=== PATIENT | female | born 1950 | race Caucasian/White ===

== ENCOUNTER 2016-05-22 12:05 | Inpatient (IN) | payer BC, MEDICARE ==
[~2016-05-22] VITALS: Ht 170.2 cm; Wt 147.4 kg
[~2016-05-22 12:05] MED LIST: FLUT16SP2 NS; FLUT1DIS IH; MONT4GRA PO; TIOT18CA3 IH
[2016-05-22] MEDS ORDERED: ONDANSETRON HCL/PF 4 MG/2 ML VIAL ONE (12:27)
[2016-05-22] MEDS ORDERED: MORPHINE SULFATE INJ 2 MG/ML DISP.SYRIN ONE ×2 (12:27→15:01)
[2016-05-22] MEDS ORDERED: IV SET PRIMARY 1 EA INFUS.SET MC ONE (12:27)
[2016-05-22] MEDS ORDERED: MORPHINE SULFATE INJ 4 MG/ML DISP.SYRIN ONE ×2 (12:27→15:01)
[2016-05-22] MEDS ORDERED: IV NS 0.9% 1,000 ML ONE (12:28)
[2016-05-22] MEDS ORDERED: MORPHINE SULFATE INJ 2 MG/ML DISP.SYRIN IV ONE ×2 (12:30→15:30)
[2016-05-22] MEDS ORDERED: IV NS 0.9% 1,000 ML BAG IV ONE (12:30)
[2016-05-22] MEDS ORDERED: ONDANSETRON HCL/PF 4 MG/2 ML VIAL IV ONE (12:30)
[2016-05-22] MEDS ORDERED: MONT10TA22 PO (12:50)
[2016-05-22] MEDS ORDERED: ALBU18HF2 IH (12:50)
[2016-05-22] MEDS ORDERED: FLUT1DIS5 IH (12:50)
[2016-05-22] MEDS ORDERED: PRED10TA PO (12:50)
[2016-05-22] MEDS ORDERED: ALBU2.5V13 IH (12:50)
[2016-05-22 13:59] LABS: BASOPHILS % (AUTO) 0.2 % (0.0-2.0); DIFF TOTAL % 100 %; EOSINOPHILS # (AUTO) 0.1 /CMM (0.0-0.7); EOSINOPHILS % (AUTO) 0.4 % (0.0-6.0); HEMATOCRIT 40 % (33-45); HEMOGLOBIN 13.1 g/dL (11.5-14.8); LYMPHOCYTES # (AUTO) 1.5 /CMM (0.8-4.8); LYMPHOCYTES % (AUTO) 8.5 % (20.0-44.0); MEAN CORPUSCULAR HEMOGLOBIN 29 PG (26.0-33.0); MEAN CORPUSCULAR HGB CONC 33 g/dl (31.0-36.0); MEAN CORPUSCULAR VOLUME 88 fL (82-100); MONOCYTES % (AUTO) 5.5 % (2.0-12.0); NEUTROPHILS # (AUTO) 15.1 /CMM (1.8-8.9); NEUTROPHILS % (AUTO) 85.4 % (43.0-81.0); PLATELET COUNT (AUTO) 187 /CMM (150-450); RED BLOOD CELL COUNT(AUTO) 4.58 MIL/uL (4.0-5.2); WHITE BLOOD COUNT (AUTO) 17.7 K/uL (4.3-11.0)
[2016-05-22 14:00] LABS: ANION GAP 11 (5-14); CALCIUM, SERUM 8.1 mg/dL (8.5-10.1); CARBON DIOXIDE 26 mmol/L (21-32); CHLORIDE 106 mmol/L (98-107); CREATININE 0.7 mg/dL (0.6-1.3); GFR 84 mL/min (>60); GLUCOSE 111 mg/dL (74-106); POTASSIUM 4.1 mmol/L (3.5-5.1); SODIUM SERUM 139 mmol/L (136-145); UREA NITROGEN, BLOOD 20 mg/dL (7-18)
[2016-05-22 14:04] LABS: INR 0.94 (0.87-1.13); PROTHROMBIN TIME 9.9 SECS (9.5-12.7)
[2016-05-22 14:09] LABS: TROPONIN I < 0.017 ng/mL (0.00-0.056)
[2016-05-22] MEDS ORDERED: ALBUTEROL FS 2.5 MG/0.5 ML VIAL.NEB IH PRN (17:30)
[2016-05-22] MEDS ORDERED: Z GUARD REMEDY 2 OZ OINT TP PRN (18:00)
[2016-05-22] MEDS ORDERED: HYDROCODONE/APAP 5/325MG 1 EACH TABLET PO PRN (18:00)
[2016-05-22] MEDS ORDERED: ACETAMINOPHEN 325 MG TABLET PO PRN (18:00)
[2016-05-22] MEDS ORDERED: ONDANSETRON HCL/PF 4 MG/2 ML VIAL IVP PRN (18:00)
[2016-05-22] MEDS ORDERED: MAGNESIUM HYDROXIDE 30 ML UDC PO PRN (18:00)
[2016-05-22] MEDS ORDERED: ZOLPIDEM TARTRATE 5 MG TABLET PO PRN (18:00)
[2016-05-22] MEDS ORDERED: MAG HYDROX/AL HYDROX/SIMETH 30 ML UDC PO PRN (18:00)
[2016-05-22] MEDS: MORPHINE SULFATE INJ 2 MG/ML DISP.SYRIN IV PRN ×2 (18:05→22:05)
[2016-05-22] MEDS: IPRATROPIUM NEB FS 0.5 MG/2.5 ML AMPUL.NEB NEB SCH (19:30)
[2016-05-22 20:06] VITALS: BP 121/62
[2016-05-22] MEDS: MONTELUKAST SODIUM (10MG) 10 MG TABLET PO SCH (21:35)
[2016-05-23] MEDS: IPRATROPIUM NEB FS 0.5 MG/2.5 ML AMPUL.NEB NEB SCH ×4 (01:36→19:09)
[2016-05-23] MEDS: PANTOPRAZOLE 40 MG TABLET.DR PO SCH (07:30)
[2016-05-23] MEDS: MORPHINE SULFATE INJ 2 MG/ML DISP.SYRIN IV PRN ×4 (07:34→23:00)
[2016-05-23 07:43] LABS: BASOPHILS % (AUTO) 0.3 % (0.0-2.0); DIFF TOTAL % 100 %; EOSINOPHILS # (AUTO) 0.2 /CMM (0.0-0.7); EOSINOPHILS % (AUTO) 2.7 % (0.0-6.0); HEMATOCRIT 39 % (33-45); HEMOGLOBIN 12.8 g/dL (11.5-14.8); LYMPHOCYTES # (AUTO) 1.2 /CMM (0.8-4.8); LYMPHOCYTES % (AUTO) 14.8 % (20.0-44.0); MEAN CORPUSCULAR HEMOGLOBIN 29 PG (26.0-33.0); MEAN CORPUSCULAR HGB CONC 33 g/dl (31.0-36.0); MEAN CORPUSCULAR VOLUME 88 fL (82-100); MONOCYTES # (AUTO) 0.6 /CMM (0.1-1.30); MONOCYTES % (AUTO) 8.2 % (2.0-12.0); NEUTROPHILS # (AUTO) 5.8 /CMM (1.8-8.9); PLATELET COUNT (AUTO) 143 /CMM (150-450); RED BLOOD CELL COUNT(AUTO) 4.46 MIL/uL (4.0-5.2); WHITE BLOOD COUNT (AUTO) 7.8 K/uL (4.3-11.0)
[2016-05-23 08:00] VITALS: BP 132/62
[2016-05-23 08:11] LABS: CALCIUM, SERUM 8.2 mg/dL (8.5-10.1); CREATININE 0.6 mg/dL (0.6-1.3); PHOSPHORUS 3.6 mg/dL (2.5-4.9); POTASSIUM 4.6 mmol/L (3.5-5.1)
[2016-05-23 08:16] LABS: THYROID STIMULATING HORMONE 1.711 uIU/mL (0.358-3.74); TROPONIN I 0.267 ng/mL (0.00-0.056)
[2016-05-23] MEDS: FLUTICASONE/SALMETEROL DISKUS IH SCH ×2 (08:31→16:45)
[2016-05-23] MEDS: FLUTICASONE PROPIONATE 16 GM BOTTLE NS SCH (08:31)
[2016-05-23] MEDS ORDERED: TIOTROPIUM BROMIDE 6 CAP/BOX CAP.W.DEV IH SCH (09:00)
[2016-05-23] MEDS ORDERED: FLUTICASONE/SALMETEROL DISKUS IH SCH (09:00)
[2016-05-23] MEDS ORDERED: IV SET PRIMARY PUMP SET 1 EA INFUS.SET MC ONE (09:03)
[2016-05-23] MEDS: IV NS 0.9% 1,000 ML IV PRN ×2 (09:24→19:59)
[2016-05-23] MEDS: HYDROCORTISONE SOD SUCCINATE 100 MG/2 ML VIAL IV SCH ×2 (14:28→20:38)
[2016-05-23 16:00] VITALS: BP 136/71
[2016-05-23 20:00] VITALS: BP 134/78
[2016-05-23] MEDS: MONTELUKAST SODIUM (10MG) 10 MG TABLET PO SCH (22:01)
[2016-05-24] VITALS (8 sets, daily range): BP systolic 120–157; BP diastolic 64–88
[2016-05-24] MEDS: IPRATROPIUM NEB FS 0.5 MG/2.5 ML AMPUL.NEB NEB SCH ×4 (01:31→19:29)
[2016-05-24] MEDS: MORPHINE SULFATE INJ 2 MG/ML DISP.SYRIN IV PRN (02:55)
[2016-05-24] MEDS: IV NS 0.9% 1,000 ML IV PRN (02:55)
[2016-05-24] MEDS ORDERED: MIDAZOLAM HCL 2 MG/2ML VIAL ONE (06:54)
[2016-05-24] MEDS ORDERED: FENTANYL PF 100MCG/2ML AMPUL ONE (06:54)
[2016-05-24] MEDS ORDERED: ROCURONIUM BROMIDE 50 MG/5 ML ONE (06:54)
[2016-05-24] MEDS ORDERED: CLINDAMYCIN 900 MG/6 ML VIAL ONE (07:16)
[2016-05-24 07:26] LABS: BASOPHILS % (AUTO) 0.3 % (0.0-2.0); DIFF TOTAL % 100 %; EOSINOPHILS % (AUTO) 0.2 % (0.0-6.0); HEMATOCRIT 35 % (33-45); HEMOGLOBIN 11.5 g/dL (11.5-14.8); LYMPHOCYTES # (AUTO) 1.2 /CMM (0.8-4.8); LYMPHOCYTES % (AUTO) 10.4 % (20.0-44.0); MEAN CORPUSCULAR HEMOGLOBIN 29 PG (26.0-33.0); MEAN CORPUSCULAR HGB CONC 33 g/dl (31.0-36.0); MEAN CORPUSCULAR VOLUME 89 fL (82-100); MONOCYTES # (AUTO) 0.8 /CMM (0.1-1.30); MONOCYTES % (AUTO) 6.6 % (2.0-12.0); NEUTROPHILS # (AUTO) 9.5 /CMM (1.8-8.9); NEUTROPHILS % (AUTO) 82.5 % (43.0-81.0); PLATELET COUNT (AUTO) 140 /CMM (150-450); WHITE BLOOD COUNT (AUTO) 11.6 K/uL (4.3-11.0)
[2016-05-24 07:46] LABS: ALBUMIN 2.3 g/dL (3.4-5.0); BILIRUBIN,TOTAL 0.7 mg/dL (0.2-1.0); CREATININE 0.6 mg/dL (0.6-1.3); PHOSPHORUS 3.2 mg/dL (2.5-4.9); POTASSIUM 3.9 mmol/L (3.5-5.1); TOTAL PROTEIN, SERUM 5.6 g/dL (6.4-8.2)
[2016-05-24] MEDS ORDERED: HYDROMORPHONE 1 MG/1 ML DISP.SYRIN ONE (08:37)
[2016-05-24] MEDS ORDERED: ONDANSETRON HCL/PF 4 MG/2 ML VIAL IVP PRN (09:30)
[2016-05-24] MEDS ORDERED: SENNOSIDES 8.6 MG TABLET PO PRN (09:30)
[2016-05-24] MEDS ORDERED: ZOLPIDEM TARTRATE 5 MG TABLET PO PRN (09:30)
[2016-05-24] MEDS ORDERED: HYDROMORPHONE 1 MG/1 ML DISP.SYRIN IV PRN (09:30)
[2016-05-24] MEDS ORDERED: ACETAMINOPHEN 325 MG TABLET PO PRN (09:30)
[2016-05-24] MEDS: PANTOPRAZOLE 40 MG TABLET.DR PO SCH (09:30)
[2016-05-24] MEDS ORDERED: BISACODYL SUPP (10 MG) 10 MG/SUPP.RECT SUPP.RECT RC PRN (09:30)
[2016-05-24] MEDS: HYDROCORTISONE SOD SUCCINATE 100 MG/2 ML VIAL IV SCH ×3 (09:31→16:38)
[2016-05-24] MEDS: FLUTICASONE PROPIONATE 16 GM BOTTLE NS SCH (10:28)
[2016-05-24] MEDS: FLUTICASONE/SALMETEROL DISKUS IH SCH ×2 (10:34→16:38)
[2016-05-24] MEDS ORDERED: SECONDARY IV SET 1 EA INFUS.SET MC ONE (12:02)
[2016-05-24] MEDS: CLINDAMYCIN 600 MG in IV D5W 50 ML IV SCH ×2 (12:09→18:14)
[2016-05-24] MEDS: IV LR 1000 ML 1,000 ML IV PRN (14:46)
[2016-05-24] MEDS: MONTELUKAST SODIUM (10MG) 10 MG TABLET PO SCH (22:05)
[2016-05-25] MEDS: CLINDAMYCIN 600 MG in IV D5W 50 ML IV SCH (00:47)
[2016-05-25] MEDS: IPRATROPIUM NEB FS 0.5 MG/2.5 ML AMPUL.NEB NEB SCH ×4 (01:18→19:47)
[2016-05-25] MEDS: HYDROCODONE/APAP 5/325MG 1 EACH TABLET PO PRN ×4 (01:44→22:27)
[2016-05-25 06:37] LABS: BASOPHILS % (AUTO) 0.3 % (0.0-2.0); DIFF TOTAL % 100 %; EOSINOPHILS % (AUTO) 0.2 % (0.0-6.0); HEMATOCRIT 30 % (33-45); HEMOGLOBIN 9.9 g/dL (11.5-14.8); LYMPHOCYTES # (AUTO) 1.1 /CMM (0.8-4.8); LYMPHOCYTES % (AUTO) 7.8 % (20.0-44.0); MEAN CORPUSCULAR HEMOGLOBIN 29 PG (26.0-33.0); MEAN CORPUSCULAR HGB CONC 33 g/dl (31.0-36.0); MEAN CORPUSCULAR VOLUME 88 fL (82-100); MONOCYTES # (AUTO) 0.8 /CMM (0.1-1.30); MONOCYTES % (AUTO) 6.2 % (2.0-12.0); NEUTROPHILS # (AUTO) 11.7 /CMM (1.8-8.9); NEUTROPHILS % (AUTO) 85.5 % (43.0-81.0); PLATELET COUNT (AUTO) 133 /CMM (150-450); RED BLOOD CELL COUNT(AUTO) 3.42 MIL/uL (4.0-5.2); WHITE BLOOD COUNT (AUTO) 13.6 K/uL (4.3-11.0)
[2016-05-25] MEDS: PANTOPRAZOLE 40 MG TABLET.DR PO SCH (07:54)
[2016-05-25 07:56] LABS: ALBUMIN 2.2 g/dL (3.4-5.0); BILIRUBIN,DIRECT 0.1 mg/dL (0.0-0.2); BILIRUBIN,TOTAL 0.6 mg/dL (0.2-1.0); CREATININE 0.7 mg/dL (0.6-1.3); INDIRECT BILIRUBIN 0.5 mg/dL (0.0-1.1); PHOSPHORUS 3.3 mg/dL (2.5-4.9); POTASSIUM 4.2 mmol/L (3.5-5.1); TOTAL PROTEIN, SERUM 5.3 g/dL (6.4-8.2)
[2016-05-25 08:00] VITALS: BP 113/56
[2016-05-25 08:02] LABS: TROPONIN I 0.062 ng/mL (0.00-0.056)
[2016-05-25] MEDS: ALBUTEROL FS 2.5 MG/3 ML VIAL.NEB NEB PRN (08:04)
[2016-05-25] MEDS: HYDROCORTISONE SOD SUCCINATE 100 MG/2 ML VIAL IV SCH ×3 (08:43→17:49)
[2016-05-25] MEDS: FLUTICASONE/SALMETEROL DISKUS IH SCH ×2 (08:44→16:51)
[2016-05-25] MEDS: FLUTICASONE PROPIONATE 16 GM BOTTLE NS SCH (08:44)
[2016-05-25] MEDS: IV LR 1000 ML 1,000 ML IV PRN ×2 (10:04→22:30)
[2016-05-25 16:00] VITALS: BP 99/64
[2016-05-25 20:00] VITALS: BP_SYST 107; BP_SYST 99; BP_DIAS 50; BP_DIAS 58
[2016-05-25 22:00] VITALS: BP 107/55
[2016-05-25] MEDS: MONTELUKAST SODIUM (10MG) 10 MG TABLET PO SCH (22:27)
[2016-05-26] MEDS: IPRATROPIUM NEB FS 0.5 MG/2.5 ML AMPUL.NEB NEB SCH ×4 (01:16→19:54)
[2016-05-26] MEDS: HYDROCODONE/APAP 5/325MG 1 EACH TABLET PO PRN ×3 (05:42→22:02)
[2016-05-26] MEDS: DOCUSATE SODIUM 250 MG CAPSULE PO PRN (06:05)
[2016-05-26 07:58] LABS: BASOPHILS # (AUTO) 0.2 /CMM (0.0-0.2); BASOPHILS % (AUTO) 1.5 % (0.0-2.0); DIFF TOTAL % 100 %; EOSINOPHILS # (AUTO) 0.1 /CMM (0.0-0.7); EOSINOPHILS % (AUTO) 0.6 % (0.0-6.0); HEMATOCRIT 30 % (33-45); HEMOGLOBIN 9.9 g/dL (11.5-14.8); LYMPHOCYTES # (AUTO) 2.3 /CMM (0.8-4.8); LYMPHOCYTES % (AUTO) 17.3 % (20.0-44.0); MEAN CORPUSCULAR HEMOGLOBIN 29 PG (26.0-33.0); MEAN CORPUSCULAR HGB CONC 33 g/dl (31.0-36.0); MEAN CORPUSCULAR VOLUME 87 fL (82-100); MONOCYTES # (AUTO) 1.1 /CMM (0.1-1.30); MONOCYTES % (AUTO) 8.4 % (2.0-12.0); NEUTROPHILS # (AUTO) 9.5 /CMM (1.8-8.9); NEUTROPHILS % (AUTO) 72.2 % (43.0-81.0); PLATELET COUNT (AUTO) 145 /CMM (150-450); RED BLOOD CELL COUNT(AUTO) 3.47 MIL/uL (4.0-5.2); WHITE BLOOD COUNT (AUTO) 13.2 K/uL (4.3-11.0)
[2016-05-26 08:00] VITALS: BP 123/61
[2016-05-26 08:21] LABS: CALCIUM, SERUM 8.1 mg/dL (8.5-10.1); CREATININE 0.5 mg/dL (0.6-1.3); PHOSPHORUS 3.2 mg/dL (2.5-4.9); POTASSIUM 3.9 mmol/L (3.5-5.1)
[2016-05-26] MEDS: HYDROCORTISONE SOD SUCCINATE 100 MG/2 ML VIAL IV SCH ×2 (08:36→12:02)
[2016-05-26] MEDS: PANTOPRAZOLE 40 MG TABLET.DR PO SCH (08:36)
[2016-05-26] MEDS: FLUTICASONE/SALMETEROL DISKUS IH SCH ×2 (08:36→17:21)
[2016-05-26] MEDS: FLUTICASONE PROPIONATE 16 GM BOTTLE NS SCH (08:37)
[2016-05-26 16:00] VITALS: BP 120/74
[2016-05-26] MEDS: predniSONE 20 MG TABLET PO SCH (16:34)
[2016-05-26 20:00] VITALS: BP 133/56
[2016-05-26] MEDS: MONTELUKAST SODIUM (10MG) 10 MG TABLET PO SCH (21:57)
[2016-05-26 22:00] VITALS: BP 133/56
[2016-05-27] MEDS: IPRATROPIUM NEB FS 0.5 MG/2.5 ML AMPUL.NEB NEB SCH ×4 (02:04→20:14)
[2016-05-27] MEDS: ALBUTEROL FS 2.5 MG/3 ML VIAL.NEB NEB PRN ×2 (07:51→13:38)
[2016-05-27] MEDS: HYDROCODONE/APAP 5/325MG 1 EACH TABLET PO PRN ×3 (07:55→21:11)
[2016-05-27 08:00] VITALS: BP 141/70
[2016-05-27] MEDS: predniSONE 20 MG TABLET PO SCH (08:38)
[2016-05-27] MEDS: DOCUSATE SODIUM 250 MG CAPSULE PO PRN (08:38)
[2016-05-27] MEDS: PANTOPRAZOLE 40 MG TABLET.DR PO SCH (08:38)
[2016-05-27] MEDS: FLUTICASONE PROPIONATE 16 GM BOTTLE NS SCH (08:39)
[2016-05-27] MEDS: FLUTICASONE/SALMETEROL DISKUS IH SCH ×2 (08:44→16:44)
[2016-05-27 08:50] VITALS: BP 141/70
[2016-05-27 12:00] VITALS: BP 134/64
[2016-05-27 13:13] LABS: DIFF TOTAL % 100 %; EOSINOPHILS # (AUTO) 0.1 /CMM (0.0-0.7); EOSINOPHILS % (AUTO) 0.4 % (0.0-6.0); HEMATOCRIT 30 % (33-45); HEMOGLOBIN 9.7 g/dL (11.5-14.8); LYMPHOCYTES # (AUTO) 0.8 /CMM (0.8-4.8); LYMPHOCYTES % (AUTO) 6.2 % (20.0-44.0); MEAN CORPUSCULAR HEMOGLOBIN 29 PG (26.0-33.0); MEAN CORPUSCULAR HGB CONC 33 g/dl (31.0-36.0); MEAN CORPUSCULAR VOLUME 89 fL (82-100); MONOCYTES # (AUTO) 0.1 /CMM (0.1-1.30); MONOCYTES % (AUTO) 0.8 % (2.0-12.0); NEUTROPHILS # (AUTO) 11.8 /CMM (1.8-8.9); NEUTROPHILS % (AUTO) 92.6 % (43.0-81.0); PLATELET COUNT (AUTO) 171 /CMM (150-450); RED BLOOD CELL COUNT(AUTO) 3.37 MIL/uL (4.0-5.2); WHITE BLOOD COUNT (AUTO) 12.7 K/uL (4.3-11.0)
[2016-05-27 16:00] VITALS: BP 139/64
[2016-05-27 20:00] VITALS: BP 115/59
[2016-05-27] MEDS: MONTELUKAST SODIUM (10MG) 10 MG TABLET PO SCH (21:33)
[2016-05-27 22:00] VITALS: BP 115/59
[2016-05-28] MEDS: IPRATROPIUM NEB FS 0.5 MG/2.5 ML AMPUL.NEB NEB SCH ×3 (01:47→14:13)
[2016-05-28] MEDS: HYDROCODONE/APAP 5/325MG 1 EACH TABLET PO PRN ×2 (05:11→13:17)
[2016-05-28 07:49] LABS: BASOPHILS # (AUTO) 0.1 /CMM (0.0-0.2); BASOPHILS % (AUTO) 0.7 % (0.0-2.0); DIFF TOTAL % 100 %; EOSINOPHILS # (AUTO) 0.2 /CMM (0.0-0.7); EOSINOPHILS % (AUTO) 1.8 % (0.0-6.0); HEMATOCRIT 28 % (33-45); HEMOGLOBIN 9.1 g/dL (11.5-14.8); LYMPHOCYTES # (AUTO) 2.7 /CMM (0.8-4.8); LYMPHOCYTES % (AUTO) 21.1 % (20.0-44.0); MEAN CORPUSCULAR HEMOGLOBIN 29 PG (26.0-33.0); MEAN CORPUSCULAR HGB CONC 32 g/dl (31.0-36.0); MEAN CORPUSCULAR VOLUME 89 fL (82-100); MONOCYTES # (AUTO) 0.8 /CMM (0.1-1.30); MONOCYTES % (AUTO) 6.2 % (2.0-12.0); NEUTROPHILS % (AUTO) 70.2 % (43.0-81.0); PLATELET COUNT (AUTO) 193 /CMM (150-450); RED BLOOD CELL COUNT(AUTO) 3.19 MIL/uL (4.0-5.2); WHITE BLOOD COUNT (AUTO) 12.8 K/uL (4.3-11.0)
[2016-05-28 08:00] VITALS: BP 114/57
[2016-05-28] MEDS: predniSONE 20 MG TABLET PO SCH (09:10)
[2016-05-28] MEDS: FLUTICASONE PROPIONATE 16 GM BOTTLE NS SCH (09:10)
[2016-05-28] MEDS: FLUTICASONE/SALMETEROL DISKUS IH SCH (09:10)
[2016-05-28] MEDS: PANTOPRAZOLE 40 MG TABLET.DR PO SCH (09:10)
[2016-05-28] MEDS ORDERED: BACI/NEOM/POLY B OINT PKT 1 UDPKT PACKET TP SCH (13:00)
[2016-05-28] MEDS ORDERED: TIOTROPIUM BROMIDE 6 CAP/BOX CAP.W.DEV IH SCH (13:00)
[2016-05-28] MEDS ORDERED: PNEUMOCOCCAL 23-VAL P-SAC VAC 0.5 ML VIAL SQ ONE (15:00)
[2016-05-28 16:00] VITALS: BP 130/72
== END 2016-05-28 16:00 | DRG 480 ==
LOC: ER 12:06 → MED 17:14
PROVIDERS: ADMIT Internal Medicine; ATTEND Internal Medicine
PROC: 0QSB06Z Reposition Right Lower Femur with Intramedullary Internal Fixation Device, Open Approach (ICD-10-PCS; principal; 2016-05-24 07:00)
DX: S72.409A Unspecified fracture of lower end of unspecified femur, initial encounter for closed fracture (principal); E43 Unspecified severe protein-calorie malnutrition; J96.01 Acute respiratory failure with hypoxia; I21.4 Non-ST elevation (NSTEMI) myocardial infarction; Z68.43 Body mass index [BMI] 50.0-59.9, adult; D69.3 Immune thrombocytopenic purpura; E66.2 Morbid (severe) obesity with alveolar hypoventilation; R74.0 Nonspecific elevation of levels of transaminase and lactic acid dehydrogenase [LDH]; W01.0XXA Fall on same level from slipping, tripping and stumbling without subsequent striking against object, initial encounter; Z98.84 Bariatric surgery status; J45.909 Unspecified asthma, uncomplicated; M19.90 Unspecified osteoarthritis, unspecified site; G62.9 Polyneuropathy, unspecified; Y92.002 Bathroom of unspecified non-institutional (private) residence as the place of occurrence of the external cause; G47.33 Obstructive sleep apnea (adult) (pediatric); D64.9 Anemia, unspecified; I11.9 Hypertensive heart disease without heart failure
CPT/HCPCS: 36415; 71010-TC; 73550-TC; 73560-TC; 73590-TC; 80048-TC; 80053-TC; 80061-TC; 80076-TC; 83735-TC; 84100-TC; 84439-TC; 84443-TC; 84484-TC; 85025-TC; 85730-TC; 86850-TC; 87081-TC; 90732; 93307-TC; 94799-TC; 97001-TC; 97110-TC; 97530-TC; A4606; A6209; A6402; A6403; C1713; J1170; J1720; J2250; J2270; J2405; J3010; J3490; J7030; J7060; J7120; Z7610

== ENCOUNTER 2018-08-29 23:49 | Inpatient (IN) | payer MEDICARE, BC ==
[~2018-08-29] VITALS: Ht 170.2 cm; Wt 157.4 kg
[~2018-08-29 23:49] MED LIST changes: +ALBU18HF2 IH; +ALBU2.5V13 IH; -FLUT1DIS IH; +FLUT1DIS5 IH; +MONT10TA22 PO; -MONT4GRA PO; +PRED10TA PO
--- NOTE | 2018-08-30 00:05 | NUR ---
PT LEONIDES FROM HOME. PER RA, PT WAS FOUND BY FAMILY MEMBERS ON THE FLOOR IN HALLWAY COVERED IN FECES. PT NORMALLY AAOX4 AND ABLE TO AMBULATE. PT CURRENLTY AAOX1, TO PERSON. VITAL SIGNS STABLE. NO ACUTE DISTRESS NOTED AT THIS TIME. PT CLEANED, PLACED IN GOWN, ON CONTINUOUS CLOTH WASHER OPERATOR. WILL CONTINUE TO MONITOR
--- NOTE | 2018-08-30 00:20 | NUR ---
URINE COLLECTED AND SENT TO LAB
[2018-08-30 00:37] LABS: APPEARANCE,URINE Slightly Cloudy (CLEAR); BILIRUBIN,URINE SMALL (NEGATIVE); BLOOD, URINE Large Ery/uL (NEGATIVE); COLOR,URINE Amber (YELLOW); KETONES,URINE 40 (NEGATIVE); LEUKOCYTE ESTERASE ,URINE Small (NEGATIVE); NITRITE, URINE Positive (NEGATIVE); PH,URINE 5.5 (5.0-8.0); PROTEIN,URINE 100 mg/dl (NEGATIVE); UGLUCOSE 100 MG/DL mg/dL (NEGATIVE)
--- NOTE | 2018-08-30 00:41 | NUR ---
RADIOLOGY AT BEDSIDE FOR XRAY
--- NOTE | 2018-08-30 00:44 | NUR ---
PT DELMI, CABLEWAY OPERATOR AT BEDSIDE FOR BLOOD DRAW
[2018-08-30 01:10] LABS: BACTERIA,URINE Moderate /HPF (None Seen); RBC,URINE TOO NUMEROUS TO COUN /HPF (0-2); SQUAMOUS EPITHELIAL CELL,UR Rare /HPF (None Seen)
[2018-08-30 01:11] LABS: BASOPHILS # (AUTO) 0.1 /CMM (0.0-0.2); BASOPHILS % (AUTO) 0.3 % (0.0-2.0); EOSINOPHILS % (AUTO) 0.7 % (0.0-6.0); HEMATOCRIT 41 % (33-45); HEMOGLOBIN 13.4 g/dL (11.5-14.8); LYMPHOCYTES # (AUTO) 1.5 /CMM (0.8-4.8); LYMPHOCYTES % (AUTO) 8.5 % (20.0-44.0); MEAN CORPUSCULAR HGB CONC 33 g/dl (31.0-36.0); MEAN CORPUSCULAR VOLUME 88 fL (82-100); MONOCYTES # (AUTO) 0.9 /CMM (0.1-1.30); MONOCYTES % (AUTO) 5.2 % (2.0-12.0); NEUTROPHILS # (AUTO) 14.5 /CMM (1.8-8.9); NEUTROPHILS % (AUTO) 85.3 % (43.0-81.0); PLATELET COUNT (AUTO) 150 /CMM (150-450); WHITE BLOOD COUNT (AUTO) 17.1 K/uL (4.3-11.0)
[2018-08-30 01:11] LABS: WBC,URINE 21-50 /HPF (0-3)
--- NOTE | 2018-08-30 01:16 | NUR ---
FAMILY AT BEDSIDE. RACHEL JONES) CONTACT INFORMATION:
[2018-08-30 01:18] LABS: ALANINE AMINOTRANSFERASE 23 U/L (12-78); ALBUMIN 2.7 g/dL (3.4-5.0); ALKALINE PHOSPHATASE 116 U/L (46-116); ASPARTATE AMINOTRANSFERASE 35 U/L (15-37); BILIRUBIN,DIRECT 0.1 mg/dL (0.0-0.2); BILIRUBIN,TOTAL 0.8 mg/dL (0.2-1.0); CALCIUM, SERUM 8.8 mg/dL (8.5-10.1); CARBON DIOXIDE 23 mmol/L (21-32); CHLORIDE 107 mmol/L (98-107); CREATININE 0.8 mg/dL (0.6-1.3); GLUCOSE 128 mg/dL (74-106); POTASSIUM 4.5 mmol/L (3.5-5.1); SODIUM SERUM 141 mmol/L (136-145); TOTAL PROTEIN, SERUM 7.4 g/dL (6.4-8.2); UREA NITROGEN, BLOOD 23 mg/dL (7-18)
[2018-08-30] MEDS ORDERED: LEVOFLOXACIN 500 MG /D5W 100ML 100 ML IV ONE (01:49)
[2018-08-30] MEDS ORDERED: LEVOFLOXACIN 500 MG /D5W 100ML 500 MG/100 ML PIGGYBACK IV ONE (02:00)
[2018-08-30] MEDS ORDERED: IV NS 0.9% 1,000 ML BAG IV ONE (02:00)
--- NOTE | 2018-08-30 02:00 | NUR ---
PT BROUGHT BY RADIOLOGY TO CT
--- NOTE | 2018-08-30 02:29 | NUR ---
STOOL SAMPLE COLLECTED AND SENT TO LAB
--- NOTE | 2018-08-30 02:56 | NUR ---
NURSING SUP GAVE BED 307-1.
--- NOTE | 2018-08-30 03:19 | NUR ---
GAVE REPORT TO LILIAM MOHR FOR LEONARD
[2018-08-30] MEDS ORDERED: HYDROCODONE/APAP 5/325MG 1 EACH TABLET PO PRN (03:30)
[2018-08-30] MEDS ORDERED: ZOLPIDEM TARTRATE 5 MG TABLET PO PRN (03:30)
[2018-08-30] MEDS ORDERED: VANCOMYCIN 1.5 GM in IV D5W 500 ML IV SCH ×2 (03:30→08:00)
[2018-08-30] MEDS ORDERED: ACETAMINOPHEN 325 MG TABLET PO PRN (03:30)
[2018-08-30] MEDS ORDERED: MAGNESIUM HYDROXIDE 30 ML UDC PO PRN (03:30)
[2018-08-30] MEDS ORDERED: MAG HYDROX/AL HYDROX/SIMETH 30 ML UDC PO PRN (03:30)
[2018-08-30] MEDS ORDERED: ONDANSETRON HCL/PF 4 MG/2 ML VIAL IVP PRN (03:30)
--- NOTE | 2018-08-30 03:56 | NUR ---
PT TRANSFERRED PER ACLS PROTOCOL
[2018-08-30 04:00] VITALS: BP 138/87
--- NOTE | 2018-08-30 04:00 | NUR ---
DOCK BUILDERTOPOGRAPHICAL ENGINEER NOTES RECEIVED FROM ER VIA ACLS PROTOCOL THIS 68 Y.O FEMALE,A/O X2,ALTERED BUT ABLE TO STATE HER NAME AND BIRTHDAY,FULL OF FECES FROM ER.IV NS 1L BOLUS STILL IN PROGRESS VIA SALINE LOCK ON LEFT HAND #20.BREATHING REGULAR,NOT IN ANY FORM OF DISTRESS.SR WITH PAC'S ON TELE MONITOR.PER PATIENT SHE NORMALLY WALK WITH WALKER.NOTED MULTIPLE SKIN ABRASION ON UPPER EXTREMITY,WOUND AND BLISTERS ON RIGHT AND LEFT UPPER THIGH.PATIENT IS OBESE,FOUND BY FAMILY MEMBER AT HOME ON THE FLOOR.PATIENT CLAIMED SHE LIVES WITH A SICK ,THAT SHE'S THE PRIMARY CAREGIVER.BED BATH ADMINISTER.KEPT WARM AND COMFORTABLE.CALL LIGHT IN REACH,WILL CONTINUE TO MONITOR STATUS.
[2018-08-30] MEDS: IV D5/0.45 NACL 1,000 ML IV PRN (06:05)
--- NOTE | 2018-08-30 06:46 | NUR ---
NUCLEAR WASTE PROCESS OPERATOR NOTES SLEEPING AT THIS TIME,AROUSABLE TO VERBAL STIMULI,MAIN IVF IN PROGRESS.ORDERED ALFA-NELLA BED,PATIENT IS 347 LBS.`WILL ENDORSE TO MIRNA MOHR FOR CONTINUITY OF CARE.
[2018-08-30] MEDS: PANTOPRAZOLE 40 MG TABLET.DR PO SCH (07:30)
--- NOTE | 2018-08-30 07:30 | NUR ---
needle setter Opening Note Patient currently resting in bed with eyes closed in Semi-Fowlers position, no acute distress noted. Aspiration precautions maintained. Easily arousable to verbal and tactile stimuli. Alert and oriented to self and place, Albanian speaking. No acute neurological changes at this time. External merchandise flow team member in place: current rhythm normal sinus with with PAC at 97 bpm. Peripheral IV access to the left hand 20 gauge, intact, patent and infusing fluids as ordered. Safety and fall precautions in place: bed in lowest and locked position, side rails up x2, bed alarm on, call light and personal possessions in reach, room well lit, floor clutter-free. Patient currently clean, dry and comfortable, on low-air loss mattress. Bariatric bed ordered, will follow-up with [employer]. Family updated on plan of care via telephone. Will continue to monitor and intervene as needed.
[2018-08-30 08:00] VITALS: BP 127/82
[2018-08-30] MEDS ORDERED: VANCOMYCIN 1.5 GM in IV D5W 500 ML IV ONE (09:00)
[2018-08-30] MEDS ORDERED: ALBUTEROL FS 2.5 MG/0.5 ML VIAL.NEB NEB PRN (10:00)
[2018-08-30] MEDS: FLUTICASONE/VILANTEROL 1 EACH BLST.W.DEV IH SCH (10:00)
[2018-08-30] MEDS ORDERED: IPRATROPIUM NEB FS 0.5 MG/2.5 ML AMPUL.NEB NEB PRN (10:00)
--- NOTE | 2018-08-30 10:08 | NUR ---
WOUND CARE CONSULT: PT PRESENTS WITH MULTIPLE BLISTERS, SOME INTACT AND SOME OPEN TO BILATERAL LOWER BUTTOCKS AND THIGHS AND WOUND TO RT HIP/LATERAL BUTTOCK AREA, PRESENT ON ADMISSION. DIFFICULT ASSESSMENT DUE TO PT'S GIRTH (AWAITING BARIATRIC BED). RECOMMEND SURGICAL CONSULT. RECOMMENDATIONS MADE FOR SKIN PROTECTION. DISCUSSED WITH NURSING STAFF. MD IN AGREEMENT WITH PLAN OF CARE. PT IS INCONTINENT. WILL SEE PRN. Addendum: 08/30/18 at 1010 by NATANAEL ALDANA Amended: Links added. Addendum: 08/30/18 at [address] LANA VILCHIS NOTIFIED OF SURGICAL CONSULT REQUEST.
[2018-08-30] MEDS: IPRATROPIUM NEB FS 0.5 MG/2.5 ML AMPUL.NEB NEB SCH ×2 (14:07→20:23)
[2018-08-30 16:00] VITALS: BP 128/68
[2018-08-30] MEDS ORDERED: FLUTICASONE/SALMETEROL DISKUS IH SCH (17:00)
[2018-08-30] MEDS: CLOTRIMAZOLE 1% 15 GM TUBE TP SCH (17:26)
[2018-08-30] MEDS: Z GUARD REMEDY 2 OZ OINT TP PRN (17:26)
--- NOTE | 2018-08-30 19:30 | NUR ---
MS RN Closing Note Patient currently resting in bed with eyes closed in Semi-Fowlers position, no acute distress noted. Aspiration precautions maintained. Easily arousable to verbal and tactile stimuli. Alert and oriented to self and place, Somali speaking. No acute neurological changes at this time. Peripheral IV access to the left hand 20 gauge, intact, patent and infusing fluids as ordered. Sheppard catheter in place, intact, patent and draining clear, jaciel urine. Safety and fall precautions in place: bed in lowest and locked position, side rails up x2, bed alarm on, call light and personal possessions in reach, room well lit, floor clutter-free. Patient currently clean, dry and comfortable, on low-air loss mattress. Turned and repositioned per protocol, offloaded extremities. Wound care rendered, all due medications given this shift. Bariatric bed delivered at end of shift, endorsed to design quality engineer for transfer. Family present at bedside. Endorsed to design quality engineer RN for continuity of care.
--- NOTE | 2018-08-30 19:35 | NUR ---
MS RN NOTE: PATIENT RESTING IN BED, NO ACUTE DISTRESS NOTED. BREATHING EVEN AND UNLABORED, NO SOB NOTED. IV TO LEFT HAND IN PLACE, INFUSING D5 1/2NS AR 75ML/HR. ARCOS CATHETER IN PLACE, DRAINING CLEAR YELLOW URINE. BED LOCKED AND IN LOWEST POSITION, CALL LIGHT IN REACH. WILL CONTINUE TO MONITOR.
[2018-08-30 20:00] VITALS: BP 108/68
[2018-08-30] MEDS: MONTELUKAST SODIUM (10MG) 10 MG TABLET PO SCH (21:25)
[2018-08-31] MEDS: IPRATROPIUM NEB FS 0.5 MG/2.5 ML AMPUL.NEB NEB SCH ×4 (01:30→21:38)
--- NOTE | 2018-08-31 04:00 | NUR ---
MS RN NOTE: PATIENT MOVED TO ROOM 329 INT0 [facility] BED WITHOUT COMPLICATIONS. PATIENT BELONGINGS MOVED INTO ROOM. BED LOCKED AND IN LOWEST POSITION, CALL LIGHT IN REACH. WILL CONTINUE TO MONITOR.
--- NOTE | 2018-08-31 06:30 | NUR ---
MS RN NOTE: PATIENT RESTING IN BED, NO ACUTE DISTRESS NOTED. BREATHING EVEN AND UNLABORED, NO SOB NOTED. IV TO LEFT HAND IN PLACE, INFUSING D5 1/2NS AR 75ML/HR. ARCOS CATHETER IN PLACE, DRAINED CLEAR YELLOW URINE. BED LOCKED AND IN LOWEST POSITION, CALL LIGHT IN REACH. WILL ENDORSE TO DAY NURSE TO CONTINUE WITH PLAN OF CARE.
[2018-08-31] MEDS ORDERED: CLOTRIMAZOLE 1% 15 GM TUBE TP SCH (07:00)
[2018-08-31] MEDS: Z GUARD REMEDY 2 OZ OINT TP SCH ×3 (07:00→22:00)
[2018-08-31] MEDS ORDERED: FEE PK DOSING 1 MIN EA MC ONE ×2 (07:25→07:35)
--- NOTE | 2018-08-31 07:38 | NUR ---
ms rn received on bed, awake,alert,oriented x 2,not in any form of distress, respirations even and unlabored,no sob noted, will monitor patient's condition, all needs attended.
[2018-08-31 08:00] VITALS: BP 85/55
[2018-08-31 08:25] LABS: BASOPHILS # (AUTO) 0.1 /CMM (0.0-0.2); BASOPHILS % (AUTO) 0.8 % (0.0-2.0); EOSINOPHILS % (AUTO) 1.9 % (0.0-6.0); HEMATOCRIT 38 % (33-45); HEMOGLOBIN 12.4 g/dL (11.5-14.8); LYMPHOCYTES # (AUTO) 1.9 /CMM (0.8-4.8); LYMPHOCYTES % (AUTO) 14.9 % (20.0-44.0); MEAN CORPUSCULAR HGB CONC 33 g/dl (31.0-36.0); MEAN CORPUSCULAR VOLUME 87 fL (82-100); MONOCYTES # (AUTO) 0.9 /CMM (0.1-1.30); MONOCYTES % (AUTO) 7.3 % (2.0-12.0); NEUTROPHILS # (AUTO) 9.5 /CMM (1.8-8.9); NEUTROPHILS % (AUTO) 75.1 % (43.0-81.0); PLATELET COUNT (AUTO) 129 /CMM (150-450); RED BLOOD CELL COUNT(AUTO) 4.36 MIL/uL (4.0-5.2); WHITE BLOOD COUNT (AUTO) 12.7 K/uL (4.3-11.0)
[2018-08-31 08:54] LABS: CALCIUM, SERUM 7.7 mg/dL (8.5-10.1); CREATININE 0.7 mg/dL (0.6-1.3); PHOSPHORUS 3.1 mg/dL (2.5-4.9); POTASSIUM 3.8 mmol/L (3.5-5.1)
[2018-08-31] MEDS: PANTOPRAZOLE 40 MG TABLET.DR PO SCH (09:00)
[2018-08-31] MEDS: VANCOMYCIN 1.5 GM in IV D5W 500 ML IV SCH (09:00)
[2018-08-31] MEDS ORDERED: TIOTROPIUM BROMIDE 6 CAP/BOX CAP.W.DEV IH SCH (09:00)
--- NOTE | 2018-08-31 09:00 | NUR ---
ms jade breakfast served,due meds given,tolerated well.
[2018-08-31] MEDS: CLOTRIMAZOLE 1% 15 GM TUBE TP SCH ×2 (09:06→17:21)
[2018-08-31] MEDS: Z GUARD REMEDY 2 OZ OINT TP PRN (09:06)
[2018-08-31] MEDS: HYDROGEL DRESSING 90 GM TUBE TP SCH ×3 (09:09→21:59)
[2018-08-31] MEDS ORDERED: ENOXAPARIN SODIUM 60 MG/0.6 ML DISP.SYRIN SQ SCH (10:00)
[2018-08-31] MEDS ORDERED: CEFTRIAXONE 1 G in IV D5W 50 ML IV SCH (11:00)
--- NOTE | 2018-08-31 11:30 | NUR ---
ms jade breakfast served,due meds given,tolerated well.
[2018-08-31] MEDS: CEFTRIAXONE 2 G in IV D5W 100 ML IV SCH (15:17)
[2018-08-31] MEDS: ENOXAPARIN SODIUM 40 MG/0.4 ML DISP.SYRIN SQ SCH (15:33)
[2018-08-31] MEDS: FLUTICASONE/VILANTEROL 1 EACH BLST.W.DEV IH SCH (15:34)
[2018-08-31] MEDS: FLUTICASONE PROPIONATE 16 GM BOTTLE NS SCH (15:35)
[2018-08-31 16:00] VITALS: BP 111/61
[2018-08-31 16:55] LABS: ABG BASE EXCESS 3.4 mmol/L; ABG OXYGEN SATURATION 93.4 % (92.0-98.5); ABG PCO2 35.3 mmHg (35.0-45.0); ABG PH 7.494 (7.350-7.450); ABG PO2 66.4 mmHg (75.0-100.0); AaDO2 41.1 mmHg; COHb 0.9 % (0.5-1.5); MetHb 0.4 % (0.0-1.5); O2Hb 92.2 % (94.0-97.0); SITE, ABG Left Radial
--- NOTE | 2018-08-31 19:30 | NUR ---
RECEIVED PATIENT IN BED AWAKE. AO X 1, ABLE TO MAKE NEED KNOWN. NO ACUTE DISTRESS NOTED. NO SIGNS OF PAIN NOTED. IV SITE PATENT, INTACT; IVF INFUSING ORDERED. ARCOS CATH PATENT, INTACT; DRAINING CLEAR YELLOW URINE. SAFETY REMINDERS GIVEN. ON LOW BED WITH BILATERAL UPPER SIDE RAILS UP. CALL MARROQUIN WITHIN EASY REACH. WILL CONTINUE TO MONITOR. NIECES AT BEDSIDE.
[2018-08-31 20:00] VITALS: BP 114/52
[2018-08-31 20:26] VITALS: BP 114/52
[2018-08-31] MEDS: MONTELUKAST SODIUM (10MG) 10 MG TABLET PO SCH (22:02)
[2018-09-01] MEDS: VANCOMYCIN 1.5 GM in IV D5W 500 ML IV SCH ×2 (02:00→20:25)
[2018-09-01] MEDS: IPRATROPIUM NEB FS 0.5 MG/2.5 ML AMPUL.NEB NEB SCH ×4 (02:08→19:00)
[2018-09-01] MEDS: IV D5/0.45 NACL 1,000 ML IV PRN (05:53)
--- NOTE | 2018-09-01 06:00 | NUR ---
PATIENT ASLEEP, EASILY AROUSABLE. RESPIRATIONS EVEN. NO SIGNS OF PAIN NOTED. DUE MEDS GIVEN WITH NO ASE NOTED. IVF INFUSING ORDERED. NEEDS ATTENDED. SAFETY REMINDERS AND COMFORT MEASURES IN PLACE. WILL GIVE REPORT TO DAY SHIFT FOR CONTINUITY OF CARE.
[2018-09-01 07:37] LABS: BASOPHILS % (AUTO) 0.6 % (0.0-2.0); EOSINOPHILS % (AUTO) 2.8 % (0.0-6.0); HEMATOCRIT 37 % (33-45); LYMPHOCYTES % (AUTO) 23.5 % (20.0-44.0); MEAN CORPUSCULAR HGB CONC 33 g/dl (31.0-36.0); MEAN CORPUSCULAR VOLUME 87 fL (82-100); MONOCYTES # (AUTO) 0.6 /CMM (0.1-1.30); MONOCYTES % (AUTO) 7.1 % (2.0-12.0); NEUTROPHILS # (AUTO) 5.5 /CMM (1.8-8.9); PLATELET COUNT (AUTO) 130 /CMM (150-450); RED BLOOD CELL COUNT(AUTO) 4.22 MIL/uL (4.0-5.2); WHITE BLOOD COUNT (AUTO) 8.4 K/uL (4.3-11.0)
[2018-09-01 07:39] LABS: CALCIUM, SERUM 7.8 mg/dL (8.5-10.1); CREATININE 0.6 mg/dL (0.6-1.3); MAGNESIUM 2.1 mg/dL (1.8-2.4); PHOSPHORUS 3.5 mg/dL (2.5-4.9); POTASSIUM 3.5 mmol/L (3.5-5.1)
[2018-09-01 08:00] VITALS: BP 101/58
--- NOTE | 2018-09-01 08:02 | NUR ---
MS RN OPENING NOTES RECEIVED PT LAYING IN BED WITH HOB ELEVATED. PT IS A/OX2-3, AFEBRILE. RESPIRATIONS ARE EVEN AND UNLABORED, NOT IN ANY ACUTE DISTRESS NOTED. PT DENIES ANY PAIN AT THIS TIME, NO C/O SOB, N/V. SARAH G22 INTACT, NO INFILTRATION NOTED, DRESSING KEPT CLEAN AND DRY. IV FLUIDS RUNNING AT 75ML/HR, TOLERATING WELL. SAFETY MEASURES ARE IN PLACE. BED ALARM IS ON AND IN ITS LOWEST POSITION. INSTRUCTED PT TO USE CALL LIGHT WHEN ASSISTANCE IS NEEDED, CALL LIGHT IS LEFT WITHIN REACH. WILL MONITOR THROUGHOUT SHIFT FOR CONTINUITY OF CARE.
[2018-09-01] MEDS: PANTOPRAZOLE 40 MG TABLET.DR PO SCH (08:41)
[2018-09-01] MEDS: HYDROGEL DRESSING 90 GM TUBE TP SCH ×2 (08:42→22:13)
[2018-09-01] MEDS: FLUTICASONE PROPIONATE 16 GM BOTTLE NS SCH (08:42)
[2018-09-01] MEDS: CLOTRIMAZOLE 1% 15 GM TUBE TP SCH ×2 (08:42→16:59)
[2018-09-01] MEDS: Z GUARD REMEDY 2 OZ OINT TP SCH ×2 (08:43→22:13)
[2018-09-01] MEDS: FLUTICASONE/VILANTEROL 1 EACH BLST.W.DEV IH SCH (08:43)
[2018-09-01] MEDS: ENOXAPARIN SODIUM 40 MG/0.4 ML DISP.SYRIN SQ SCH (08:48)
[2018-09-01] MEDS: CEFTRIAXONE 2 G in IV D5W 100 ML IV SCH (12:54)
--- NOTE | 2018-09-01 13:37 | NUR ---
MS RN NOTES-- PT ABLE TO MAKE NEEDS KNOWN. NEEDS MET AND RENDERED. PT IS NOT IN ANY APPARENT DISTRESS NOTED. WILL CONTINUE TO MONITOR.
--- NOTE | 2018-09-01 14:30 | NUR ---
MS RN NOTES-- PT CONSENTS SIGNED FOR DEBRIDEMENT OF BUTTOCKS WITH ELIZABETH MOHR AND VERBAL CONSENT FROM JOHN (NIECE) PLACED IN CHART.
[2018-09-01 16:00] VITALS: BP 116/57
[2018-09-01] MEDS: LACTOBACILLUS RHAMNOSUS GG 1 EACH CAP.SPRINK PO SCH (16:58)
--- NOTE | 2018-09-01 18:34 | NUR ---
MS RN CLOSING NOTES ALL DUE MEDS GIVEN, NEEDS MET AND RENDERED. PT IS A/OX2-3, AFEBRILE. RESPIRATIONS ARE EVEN AND UNLABORED, NOT IN ANY ACUTE DISTRESS NOTED. PT DENIES ANY PAIN AT THIS TIME, NO C/O SOB, N/V. LEFT HAND G20 INTACT, NO INFILTRATION NOTED, DRESSING KEPT CLEAN AND DRY. IV FLUIDS RUNNING AT 75ML/HR, TOLERATING WELL. SAFETY MEASURES ARE IN PLACE. BED ALARM IS ON AND IN ITS LOWEST POSITION. INSTRUCTED PT TO USE CALL LIGHT WHEN ASSISTANCE IS NEEDED, CALL LIGHT IS LEFT WITHIN REACH. WILL ENDORSE TO NEXT SHIFT FOR CONTINUITY OF CARE.
--- NOTE | 2018-09-01 19:57 | NUR ---
MS COMMUNITY AFFAIRS DIRECTOR INITIAL NOTES RECEIVED REPORT FROM AM NURSE AND AND CHECKED PT SHE AWAKE AND ALERT TO HER NAME AND WHERE SHE AT. SHE'S ON BIG BOY BED BECAUSE PT OBESE. BREATHING EVEN AND UNLABORED NOT IN ANY ACUTE DISTRESS NOTED. STILL ON IVF D51/2 NS AT 75 ML/HR INFUSING ON HER LEFT HAND. PER AM NURSE PT JUST HAD DEBRIDEMENT OF HER RIGHT HIP TODAY DRESSING DRY AND INTACT AND SCHEDULE TO HAVE DEBRIDEMENT AIDEE FOR HER BUTTOCKS AREA. PT AWARE OF IT .RE-ORIENTED HOW TO USED THE CALL LIGHT SYSTEM AND ENCOURAGE HER IF SHE NEEDS SOME HELP. KEPT HER WARM AND COMFORTABLE AT ALL TIMES. PLACE CALL LIGHT AT REACH. WILL CONTINUE MONITORING.
[2018-09-01 20:00] VITALS: BP 115/61
--- NOTE | 2018-09-01 20:29 | NUR ---
MS RN NOTES VANCO TROUGH 1S 15,DUE VANCMYCIN 1.5GM IVPB HUNG,INFUSING AT 250ML/HR OVER 2 HOURS VIA IV PUMP.
[2018-09-01] MEDS: MONTELUKAST SODIUM (10MG) 10 MG TABLET PO SCH (22:02)
--- NOTE | 2018-09-01 23:16 | NUR ---
ms community organization director closing notes gave report to another nurse Dulce for continuation of care. pt resting comfortably in bed no signs of any discomfort or any acute distress. ivf still infusing.
[2018-09-02] MEDS: IPRATROPIUM NEB FS 0.5 MG/2.5 ML AMPUL.NEB NEB SCH ×4 (01:43→19:54)
[2018-09-02] MEDS: IV D5/0.45 NACL 1,000 ML IV PRN (02:08)
[2018-09-02] MEDS: PANTOPRAZOLE 40 MG TABLET.DR PO SCH (06:48)
[2018-09-02 08:00] VITALS: BP 127/63
[2018-09-02] MEDS: FLUTICASONE/VILANTEROL 1 EACH BLST.W.DEV IH SCH (08:13)
[2018-09-02] MEDS: VANCOMYCIN 1.25 GM in IV D5W 500 ML IV SCH ×2 (08:13→21:20)
[2018-09-02] MEDS: LACTOBACILLUS RHAMNOSUS GG 1 EACH CAP.SPRINK PO SCH ×2 (08:14→18:03)
[2018-09-02] MEDS: FLUTICASONE PROPIONATE 16 GM BOTTLE NS SCH (08:14)
[2018-09-02] MEDS: HYDROGEL DRESSING 90 GM TUBE TP SCH ×2 (08:14→21:22)
[2018-09-02] MEDS: Z GUARD REMEDY 2 OZ OINT TP SCH ×2 (08:15→21:22)
[2018-09-02] MEDS: CLOTRIMAZOLE 1% 15 GM TUBE TP SCH ×2 (08:15→17:00)
[2018-09-02] MEDS: ENOXAPARIN SODIUM 40 MG/0.4 ML DISP.SYRIN SQ SCH (08:22)
[2018-09-02 08:27] LABS: BASOPHILS # (AUTO) 0.1 /CMM (0.0-0.2); BASOPHILS % (AUTO) 0.8 % (0.0-2.0); EOSINOPHILS % (AUTO) 3.7 % (0.0-6.0); HEMATOCRIT 38 % (33-45); HEMOGLOBIN 12.4 g/dL (11.5-14.8); LYMPHOCYTES # (AUTO) 1.8 /CMM (0.8-4.8); LYMPHOCYTES % (AUTO) 24.4 % (20.0-44.0); MEAN CORPUSCULAR HGB CONC 33 g/dl (31.0-36.0); MEAN CORPUSCULAR VOLUME 87 fL (82-100); MONOCYTES # (AUTO) 0.6 /CMM (0.1-1.30); MONOCYTES % (AUTO) 7.6 % (2.0-12.0); NEUTROPHILS # (AUTO) 4.7 /CMM (1.8-8.9); NEUTROPHILS % (AUTO) 63.5 % (43.0-81.0); PLATELET COUNT (AUTO) 142 /CMM (150-450); RED BLOOD CELL COUNT(AUTO) 4.39 MIL/uL (4.0-5.2); WHITE BLOOD COUNT (AUTO) 7.4 K/uL (4.3-11.0)
[2018-09-02 08:36] LABS: CALCIUM, SERUM 8.2 mg/dL (8.5-10.1); CREATININE 0.7 mg/dL (0.6-1.3); MAGNESIUM 2.2 mg/dL (1.8-2.4); PHOSPHORUS 3.7 mg/dL (2.5-4.9); POTASSIUM 3.8 mmol/L (3.5-5.1)
[2018-09-02] MEDS: CEFTRIAXONE 2 G in IV D5W 100 ML IV SCH (13:10)
[2018-09-02 16:00] VITALS: BP 123/63
--- NOTE | 2018-09-02 19:00 | NUR ---
ms helper electrical initial notes received report from am nurse EDGAR and seen pt in bed awake and alert talking to her family at the bedside. denies any pain or any discomfort. no signs of any distress noted. heplock at this time as ordered, patent and intact. bustillo to gravity woth clear yellow output noted. kept her warm and comfortable at all times. place call light at reach. will continue monitoring.
--- NOTE | 2018-09-02 19:17 | NUR ---
NEEDS MET AND RENDERED. PT IS A/OX2-3, AFEBRILE. RESPIRATIONS ARE EVEN AND UNLABORED, NOT IN ANY ACUTE DISTRESS NOTED. PT DENIES ANY PAIN AT THIS TIME, NO C/O SOB, N/V. LEFT HAND G20 INTACT, NO INFILTRATION NOTED, DRESSING KEPT CLEAN AND DRY. SAFETY MEASURES ARE IN PLACE. BED ALARM IS ON AND IN ITS LOWEST POSITION, CALL LIGHT WITHIN REACH. PATIENT ABLE TO REPOSITION HERSELF IN THE BED. WILL ENDORSE TO NEXT SHIFT FOR CONTINUITY OF CARE.
[2018-09-02 20:00] VITALS: BP 130/64
[2018-09-02] MEDS: CEFAZOLIN 1 GM in IV NS 0.9% 50 ML IV SCH (20:39)
--- NOTE | 2018-09-02 22:00 | NUR ---
ms eleanor notes routine meds given and wound care tx also done , reposition pt for comfort. kept him warm and comfortable at all times. place call light at reach. will continue monitoring.
[2018-09-02] MEDS: MONTELUKAST SODIUM (10MG) 10 MG TABLET PO SCH (22:17)
--- NOTE | 2018-09-03 | NUR ---
ms automatic wheel line operator notes pt sleeping comfortably in bed without any distress noted. heplock at this time. will continue monitoring.
[2018-09-03] MEDS: IPRATROPIUM NEB FS 0.5 MG/2.5 ML AMPUL.NEB NEB SCH ×4 (02:16→20:09)
[2018-09-03] MEDS: CEFAZOLIN 1 GM in IV NS 0.9% 50 ML IV SCH ×3 (04:36→19:10)
--- NOTE | 2018-09-03 04:37 | NUR ---
ms oliving machine operator notes pt sleeping comfortably in bed , breathing even and non-labored not in any acute distress noted. IVF still infusing. kept her warm and comfortable at all times. place call light at reach. will continue monitoring.
--- NOTE | 2018-09-03 04:39 | NUR ---
COVERING NURSE IV Cefazolin administered, education on antibiotic indication and possible side effect provided.
--- NOTE | 2018-09-03 07:06 | NUR ---
MS RN NOTES PATIENT IN BED ALERT ORIENTED X 3. NO ACUTE DISTRESS NOTED. BREATHING UNLABORED. IV ACCESS PATENT AND INTACT, NO REDNESS OR SWELLING NOTED. SAFETY MEASURES IN PLACE. CALL LIGHT WITHIN REACH. WILL CONTINUE TO MONITOR ACCORDINGLY.
--- NOTE | 2018-09-03 07:17 | NUR ---
ms vb net programmer closing notes pt remain resting comfortably in bed without any acute distress noted. stable breana the night and slept well. all due meds given and all needs met. wound care also done as ordered. kept her warm and comfortable at all times. place call light at reach. will endorse to am nurse for continuity of care.
[2018-09-03] MEDS: PANTOPRAZOLE 40 MG TABLET.DR PO SCH (07:55)
--- NOTE | 2018-09-03 08:50 | NUR ---
MS RN NOTES BOOKKEEPERS SUPERVISOR UNABLE TO COLLECT BLOOD FOR VANCO TROUGH EARLIER, FOLLOWED UP WITH LABORATORY SAID ANOTHER BOOKKEEPERS SUPERVISOR WILL COME BACK, NOTIFIED PHARMACIST RORO THAT VANCOMYCIN NOT GIVEN YET DUE TO VANCOMYCIN TROUGH DONE YET.
[2018-09-03] MEDS: ENOXAPARIN SODIUM 40 MG/0.4 ML DISP.SYRIN SQ SCH (09:07)
[2018-09-03] MEDS: LACTOBACILLUS RHAMNOSUS GG 1 EACH CAP.SPRINK PO SCH ×2 (09:07→16:53)
[2018-09-03] MEDS: FLUTICASONE/VILANTEROL 1 EACH BLST.W.DEV IH SCH (09:08)
[2018-09-03] MEDS: FLUTICASONE PROPIONATE 16 GM BOTTLE NS SCH (09:08)
[2018-09-03] MEDS: CLOTRIMAZOLE 1% 15 GM TUBE TP SCH ×2 (09:09→16:55)
[2018-09-03] MEDS: HYDROGEL DRESSING 90 GM TUBE TP SCH ×2 (09:09→21:27)
[2018-09-03] MEDS: Z GUARD REMEDY 2 OZ OINT TP SCH ×2 (09:10→21:28)
[2018-09-03 10:06] LABS: CALCIUM, SERUM 8.4 mg/dL (8.5-10.1); CREATININE 0.8 mg/dL (0.6-1.3); PHOSPHORUS 3.1 mg/dL (2.5-4.9); POTASSIUM 3.7 mmol/L (3.5-5.1)
[2018-09-03 10:11] LABS: BASOPHILS # (AUTO) 0.1 /CMM (0.0-0.2); BASOPHILS % (AUTO) 0.7 % (0.0-2.0); HEMATOCRIT 42 % (33-45); HEMOGLOBIN 13.7 g/dL (11.5-14.8); LYMPHOCYTES # (AUTO) 1.5 /CMM (0.8-4.8); LYMPHOCYTES % (AUTO) 20.3 % (20.0-44.0); MEAN CORPUSCULAR HGB CONC 33 g/dl (31.0-36.0); MEAN CORPUSCULAR VOLUME 87 fL (82-100); MONOCYTES # (AUTO) 0.5 /CMM (0.1-1.30); MONOCYTES % (AUTO) 6.9 % (2.0-12.0); NEUTROPHILS # (AUTO) 5.1 /CMM (1.8-8.9); NEUTROPHILS % (AUTO) 68.1 % (43.0-81.0); PLATELET COUNT (AUTO) 151 /CMM (150-450); RED BLOOD CELL COUNT(AUTO) 4.85 MIL/uL (4.0-5.2); WHITE BLOOD COUNT (AUTO) 7.5 K/uL (4.3-11.0)
[2018-09-03] MEDS: VANCOMYCIN 1.25 GM in IV D5W 500 ML IV SCH (10:19)
[2018-09-03 11:22] VITALS: BP 94/78
[2018-09-03 16:09] VITALS: BP 130/63
--- NOTE | 2018-09-03 19:00 | NUR ---
MS RN NOTES PATIENT IN BED ALERT ORIENTED X 3. NO ACUTE DISTRESS NOTED. BREATHING UNLABORED. IV ACCESS PATENT AND INTACT, NO REDNESS OR SWELLING NOTED. DUE MEDICATIONS GIVEN, NO ASE NOTED. NEEDS ATTENDED AND ANTICIPATED. ASSISTED AND REPOSITIONED PER PROTOCOL. SAFETY MEASURES IN PLACE. CALL LIGHT WITHIN REACH. WILL ENDORSE TO NIGHT NURSE FOR CONTINUITY OF CARE.
--- NOTE | 2018-09-03 19:00 | NUR ---
MS RN OPENING NOTES Received patient comfortably asleep at this time. On RA, no SOB/respirator distress noted. No signs of discomfort noted at this time. On fall precautions, call light within easy reach. Will continue to monitor accordingly.
[2018-09-03 20:00] VITALS: BP 118/50
[2018-09-03] MEDS: Z GUARD REMEDY 2 OZ OINT TP PRN (21:27)
[2018-09-03] MEDS: MONTELUKAST SODIUM (10MG) 10 MG TABLET PO SCH (21:53)
[2018-09-04] MEDS: IPRATROPIUM NEB FS 0.5 MG/2.5 ML AMPUL.NEB NEB SCH ×4 (02:02→19:44)
[2018-09-04] MEDS: CEFAZOLIN 1 GM in IV NS 0.9% 50 ML IV SCH ×3 (03:15→19:11)
[2018-09-04 06:34] LABS: CALCIUM, SERUM 9.1 mg/dL (8.5-10.1); CREATININE 0.8 mg/dL (0.6-1.3); POTASSIUM 4.1 mmol/L (3.5-5.1)
--- NOTE | 2018-09-04 07:11 | NUR ---
MS RN CLOSING NOTES Patient comfortably asleep on bed, on RA, no SOB/respiratory distress noted. No discomfort noted. All due meds given, all nursing needs attended. On fall precaution. Call light within easy reach. Endorsed to the next shift.
--- NOTE | 2018-09-04 07:50 | NUR ---
MS/RN OPENING NOTE PATIENT IN BED IN STABLE CONDITION. A/O X 3, NO SIGNS OF ACUTE DISTRESS. NO COMPLAIN OF PAIN OR DISCOMFORT. ALL NEEDS ATTENDED TO. CALL LIGHT WITHIN REACH. WILL CONTINUE TO MONITOR TO ENSURE SAFETY.
[2018-09-04 08:45] VITALS: BP 96/64
[2018-09-04] MEDS: PANTOPRAZOLE 40 MG TABLET.DR PO SCH (08:49)
[2018-09-04] MEDS: FLUTICASONE/VILANTEROL 1 EACH BLST.W.DEV IH SCH (08:49)
[2018-09-04] MEDS: FLUTICASONE PROPIONATE 16 GM BOTTLE NS SCH (08:49)
[2018-09-04] MEDS: LACTOBACILLUS RHAMNOSUS GG 1 EACH CAP.SPRINK PO SCH ×2 (08:49→16:46)
[2018-09-04] MEDS: HYDROGEL DRESSING 90 GM TUBE TP SCH ×2 (08:50→21:09)
[2018-09-04] MEDS: CLOTRIMAZOLE 1% 15 GM TUBE TP SCH ×2 (08:50→16:46)
[2018-09-04] MEDS: Z GUARD REMEDY 2 OZ OINT TP PRN (08:50)
[2018-09-04] MEDS: Z GUARD REMEDY 2 OZ OINT TP SCH ×2 (08:51→21:09)
[2018-09-04] MEDS: ENOXAPARIN SODIUM 40 MG/0.4 ML DISP.SYRIN SQ SCH (08:54)
--- NOTE | 2018-09-04 14:18 | NUR ---
MS/RN PATIENT REFUSED TO BE REPOSITIONED Q 2 HRS, OFFERED X 3 WITH RISKS AND BENEFITS EXPLAINED, STILL CONTINUE TO REFUSE. WILL CONTINUE TO MONITOR TO ENSURE SAFETY.
[2018-09-04 16:00] VITALS: BP 139/68
--- NOTE | 2018-09-04 18:31 | NUR ---
MS/RN CLOSING NOTE PATIENT IN BED IN STABLE CONDITION. A/O X 3. NO SIGNS OF ACUTE DISTRESS. NO COMPLAIN OF PAIN OR DISCOMFORT. REFUSED TO REPOSITION Q 2 HRS, OFFERED X 3, WITH RISKS AND BENEFITS EXPLAINED, STILL CONTINUE TO REFUSE. ALL NEEDS ATTENDED TO AT THIS TIME. CALL LIGHT WITHIN REACH. WILL ENDORSE TO NEXT SHIFT FOR CONTINUITY OF CARE.
--- NOTE | 2018-09-04 19:08 | NUR ---
MS RN OPENING NOTES Received patient A/Ox3, awake on semi-Butcher's position on bed. On RA, no SOB/respiratory distress noted. With patent indwelling FC, with clear yellow urine output. Per AM RN, patient refused repositioning. On bariatric bed with SALOME. On fall precautions, call light within easy reach. Will continue to monitor accordingly.
[2018-09-04 20:00] VITALS: BP 108/69
[2018-09-04] MEDS: MONTELUKAST SODIUM (10MG) 10 MG TABLET PO SCH (21:06)
[2018-09-05] MEDS: IPRATROPIUM NEB FS 0.5 MG/2.5 ML AMPUL.NEB NEB SCH ×4 (01:51→19:30)
[2018-09-05] MEDS: CEFAZOLIN 1 GM in IV NS 0.9% 50 ML IV SCH ×3 (03:31→20:10)
[2018-09-05 06:44] LABS: CALCIUM, SERUM 8.9 mg/dL (8.5-10.1); CREATININE 0.7 mg/dL (0.6-1.3); POTASSIUM 3.9 mmol/L (3.5-5.1)
--- NOTE | 2018-09-05 06:45 | NUR ---
MS RN CLOSING NOTES Patient asleep on bed comfortably. No SOB/respiratory distress noted. No discomfort noted at this time. All due meds given as ordered, no ASE noted. All nursing needs attended, no new complaints made. On fall precautions, call light within easy reach. Endorsed to the next shift.
[2018-09-05 08:00] VITALS: BP 124/77
[2018-09-05] MEDS: LACTOBACILLUS RHAMNOSUS GG 1 EACH CAP.SPRINK PO SCH ×2 (09:27→18:46)
[2018-09-05] MEDS: FLUTICASONE PROPIONATE 16 GM BOTTLE NS SCH (09:27)
[2018-09-05] MEDS: FLUTICASONE/VILANTEROL 1 EACH BLST.W.DEV IH SCH (09:27)
[2018-09-05] MEDS: ENOXAPARIN SODIUM 40 MG/0.4 ML DISP.SYRIN SQ SCH (09:28)
[2018-09-05] MEDS: HYDROGEL DRESSING 90 GM TUBE TP SCH ×2 (09:29→21:03)
[2018-09-05] MEDS: CLOTRIMAZOLE 1% 15 GM TUBE TP SCH ×2 (09:29→18:46)
[2018-09-05] MEDS: Z GUARD REMEDY 2 OZ OINT TP SCH ×2 (09:30→21:05)
[2018-09-05] MEDS: PANTOPRAZOLE 40 MG TABLET.DR PO SCH (09:32)
[2018-09-05 16:00] VITALS: BP 103/59
--- NOTE | 2018-09-05 19:30 | NUR ---
RECEIVED PATIENT IN BED AWAKE. AO X 3, ABLE TO MAKE NEEDS KNOWN. NO ACUTE DISTRESS NOTED. DENIES ANY PAIN AT THIS TIME. ARCOS CATH PATENT, INTACT; DRAINING CLEAR DARK YELLOW URINE. SAFETY REMINDERS GIVEN. ON LOW BED WITH BILATERAL UPPER SIDE RAILS UP. CALL MARROQUIN WITHIN EASY REACH. WILL CONTINUE TO MONITOR.
[2018-09-05 20:00] VITALS: BP 90/57
[2018-09-05] MEDS: MONTELUKAST SODIUM (10MG) 10 MG TABLET PO SCH (21:04)
[2018-09-06] MEDS: IPRATROPIUM NEB FS 0.5 MG/2.5 ML AMPUL.NEB NEB SCH ×4 (01:28→19:29)
[2018-09-06] MEDS: CEFAZOLIN 1 GM in IV NS 0.9% 50 ML IV SCH ×3 (04:35→21:07)
--- NOTE | 2018-09-06 06:00 | NUR ---
PATIENT ASLEEP, EASILY AROUSABLE. RESPIRATIONS EVEN. NO SIGNS OF PAIN NOTED. DUE MEDS GIVEN WITH NO ASE NOTED. NEEDS ATTENDED. KEPT CLEAN, DRY, AND COMFORTABLE. SAFETY PRECAUTIONS AND COMFORT MEASURES IN PLACE. WILL GIVE REPORT TO DAY SHIFT FOR CONTINUITY OF CARE.
--- NOTE | 2018-09-06 07:44 | NUR ---
MS RN OPENING NOTES PATIENT IN BED RESTING, ALERT AND ORIENTED X3. PATIENT RESPONSIVE TO VERBAL STIMULI. PATIENT IN NO PAIN AT THIS TIME. PATIENT ARCOS CATHETER IS HANGING TO GRAVITY. IV INTACT. BED ALARM IS ON. PATIENT BREATHING IS EVEN AND UNLABORED. PATIENT IS IN NO ACUTE DISTRESS. NO SOB NOTED. PATIENT BED IS LOCKED AND IN LOWEST POSITION. CALL LIGHT WITHIN REACH. WILL CONTINUE TO MONITOR.
[2018-09-06 08:00] VITALS: BP 115/74
[2018-09-06] MEDS: ENOXAPARIN SODIUM 40 MG/0.4 ML DISP.SYRIN SQ SCH (08:58)
[2018-09-06] MEDS: PANTOPRAZOLE 40 MG TABLET.DR PO SCH (09:00)
[2018-09-06] MEDS: FLUTICASONE/VILANTEROL 1 EACH BLST.W.DEV IH SCH (09:00)
[2018-09-06] MEDS: LACTOBACILLUS RHAMNOSUS GG 1 EACH CAP.SPRINK PO SCH ×2 (09:00→17:49)
[2018-09-06] MEDS: FLUTICASONE PROPIONATE 16 GM BOTTLE NS SCH (09:00)
[2018-09-06] MEDS: CLOTRIMAZOLE 1% 15 GM TUBE TP SCH ×2 (09:01→17:50)
[2018-09-06 09:03] LABS: CALCIUM, SERUM 8.2 mg/dL (8.5-10.1); CREATININE 0.7 mg/dL (0.6-1.3); POTASSIUM 3.8 mmol/L (3.5-5.1)
[2018-09-06] MEDS: Z GUARD REMEDY 2 OZ OINT TP SCH ×2 (09:03→21:09)
[2018-09-06] MEDS: HYDROGEL DRESSING 90 GM TUBE TP SCH ×2 (09:03→21:09)
--- NOTE | 2018-09-06 15:22 | NUR ---
MS RN NOTES PATIENT REFUSES TO HAVE ORDER, ARCOS CATHETER REMOVED AT THIS TIME. PATIENT IS PLANNING TO GO HOME TOMORROW. PATIENT REQUESTS TO HAVE ARCOS CATHETER REMOVED TOMORROW. MADE AWARE AND NOTIFIED. WILL CONTINUE TO MONITOR.
[2018-09-06 16:00] VITALS: BP 110/61
--- NOTE | 2018-09-06 19:30 | NUR ---
MS RN NOTES PATIENT IN BED RESTING NO SOB OR ACUTE DISTRESS NOTED. ALL DUE MEDICATIONS ADMINISTERED. ALL NEEDS MET. ENDORSED CARE TP PM SHIFT.
[2018-09-06 20:08] VITALS: BP 137/68
[2018-09-06] MEDS: MONTELUKAST SODIUM (10MG) 10 MG TABLET PO SCH (21:07)
[2018-09-07] MEDS: IPRATROPIUM NEB FS 0.5 MG/2.5 ML AMPUL.NEB NEB SCH ×4 (01:27→19:24)
[2018-09-07] MEDS: CEFAZOLIN 1 GM in IV NS 0.9% 50 ML IV SCH ×2 (03:49→11:30)
--- NOTE | 2018-09-07 05:07 | NUR ---
MS RN NOTES RECEIVED PATIENT AWAKE IN BED WITH NO DISTRESS NOTED. CALL LIGHT WITHIN REACH. NO C/O PAIN OR DISCOMFORT. PERIPHERAL LINE INTACT AND PATENT. BED IN LOW LOCK SETTING. BED ALARM ON AND FUNCTIONING PROPERLY. ROOM FREE OF CLUTTER AND BELONGINGS KEPT NEAR BEDSIDE. WILL CONTINUE TO MONITOR.
--- NOTE | 2018-09-07 07:39 | NUR ---
MS/RN OPENING NOTE PATIENT IN BED IN STABLE CONDITION. A/O X 3. NO SIGNS OF ACUTE DISTRESS. NO COMPLAIN OF PAIN OR DISCOMFORT. ALL NEEDS ATTENDED TO. CALL LIGHT WITHIN REACH. WILL CONTINUE TO MONITOR TO ENSURE SAFETY.
[2018-09-07 08:00] VITALS: BP 133/73
[2018-09-07] MEDS: PANTOPRAZOLE 40 MG TABLET.DR PO SCH (08:36)
[2018-09-07] MEDS: LACTOBACILLUS RHAMNOSUS GG 1 EACH CAP.SPRINK PO SCH ×2 (08:36→16:40)
[2018-09-07] MEDS: FLUTICASONE/VILANTEROL 1 EACH BLST.W.DEV IH SCH (08:36)
[2018-09-07] MEDS: FLUTICASONE PROPIONATE 16 GM BOTTLE NS SCH (08:37)
[2018-09-07] MEDS: Z GUARD REMEDY 2 OZ OINT TP SCH (08:37)
[2018-09-07] MEDS: HYDROGEL DRESSING 90 GM TUBE TP SCH (08:37)
[2018-09-07] MEDS: CLOTRIMAZOLE 1% 15 GM TUBE TP SCH ×2 (08:38→16:42)
[2018-09-07] MEDS: ENOXAPARIN SODIUM 40 MG/0.4 ML DISP.SYRIN SQ SCH (08:40)
[2018-09-07] MEDS ORDERED: CEPH-570 PO (10:55)
--- NOTE | 2018-09-07 15:30 | NUR ---
MS/RN PATIENT REFUSED DISCHARGE SKIN ASSESSMENT PICTURES TO BE TAKEN, OFFERED X 3 WITH RISKS AND BENEFITS EXPLAINED CONTINUE TO REFUSE, PER PATIENT, THEY TOOK PICTURES ON THURSDAY NIGHT.
[2018-09-07 16:00] VITALS: BP 121/68
--- NOTE | 2018-09-07 18:51 | NUR ---
MS/RN CLOSING NOTE PATIENT IN BED IN STABLE CONDITION. A/O X 3. NO SIGNS OF ACUTE DISTRESS. NO COMPLAIN OF PAIN AND DISCOMFORT. PATIENT HAS ORDER TO DISCHARGE GOING HOME WITH AMBULANCE PROJECT ENGINEERING DIRECTOR AROUND AT 8PM ORDERED BARIATRIC BED. DISCHARGE PAPER WORK GIVEN TO NIECE DUE TO PATIENT WAS SUPPOSED TO BE PICKED UP BY NIECE EARLIER TO GO HOME BUT PATIENT UNABLE TO SIT IN NIECE'S CAR. ALL NEEDS ATTENDED TO. WILL ENDORSE TO NEXT SHIFT FOR CONTINUITY OF CARE.
--- NOTE | 2018-09-07 19:40 | NUR ---
MSRN AMBULANCE AT BEDSIDE. PATIENT STABLE. NO NEEDS MADE. WILL GO WITH ARCOS CATHETER PER REPORT. DISCHARGED TO HOME VIA AMBULANCE.
== END 2018-09-07 19:43 | disposition home health service (06) | DRG 853 ==
LOC: ER 23:51 → TELE 08-30 03:03 → MED 08-30 10:59
PROVIDERS: ADMIT Nurse Practitioner Acute Care; ATTEND Student in an Organized Health Care Education/Training Program
PROC: 0JB70ZZ Excision of Back Subcutaneous Tissue and Fascia, Open Approach (ICD-10-PCS; 2018-09-01)
PROC: 0JB90ZZ Excision of Buttock Subcutaneous Tissue and Fascia, Open Approach (ICD-10-PCS; principal; 2018-09-05)
DX: A41.9 Sepsis, unspecified organism (principal); L89.213 Pressure ulcer of right hip, stage 3; J15.9 Unspecified bacterial pneumonia; N17.0 Acute kidney failure with tubular necrosis; G92 Toxic encephalopathy; N39.0 Urinary tract infection, site not specified; E44.1 Mild protein-calorie malnutrition; D68.59 Other primary thrombophilia; Z68.43 Body mass index [BMI] 50.0-59.9, adult; E87.2 Acidosis; J98.11 Atelectasis; J44.0 Chronic obstructive pulmonary disease with (acute) lower respiratory infection; E27.40 Unspecified adrenocortical insufficiency; J45.909 Unspecified asthma, uncomplicated; M19.90 Unspecified osteoarthritis, unspecified site; B96.89 Other specified bacterial agents as the cause of diseases classified elsewhere; E88.09 Other disorders of plasma-protein metabolism, not elsewhere classified; G62.9 Polyneuropathy, unspecified; L89.150 Pressure ulcer of sacral region, unstageable; L89.020 Pressure ulcer of left elbow, unstageable; L98.8 Other specified disorders of the skin and subcutaneous tissue; S30.820A Blister (nonthermal) of lower back and pelvis, initial encounter; X58.XXXA Exposure to other specified factors, initial encounter; Y93.9 Activity, unspecified; Y92.009 Unspecified place in unspecified non-institutional (private) residence as the place of occurrence of the external cause; L08.9 Local infection of the skin and subcutaneous tissue, unspecified; E66.01 Morbid (severe) obesity due to excess calories; L30.4 Erythema intertrigo; G47.33 Obstructive sleep apnea (adult) (pediatric); Z86.2 Personal history of diseases of the blood and blood-forming organs and certain disorders involving the immune mechanism; B96.20 Unspecified Escherichia coli [E. coli] as the cause of diseases classified elsewhere
CPT/HCPCS: 36415; 36600; 70450-TC; 71045-TC; 80048-TC; 80061-TC; 80076-TC; 80202-TC; 81000-TC; 82533; 82803-TC; 83605-TC; 83735-TC; 83880; 84100-TC; 84443-TC; 84484-TC; 85025-TC; 85730-TC; 87040-TC; 87045-TC; 87070-TC; 87081-TC; 87086-TC; 87186-TC; 87806; 92526; 92611-TC; 93307-TC; 94799-TC; 97110-TC; 97112-TC; 97116-TC; 97530-TC; A4216; A6248; A6253; A6402; A6403; G0378; J0690; J0696; J1650; J1956; J3370; J3490; J7030; J7060

== ENCOUNTER 2018-09-12 21:16 | Inpatient (IN) | payer MEDICARE, BC ==
[~2018-09-12] VITALS: Ht 170.2 cm; Wt 153.3 kg
[~2018-09-12 21:16] MED LIST changes: +CEPH-570 PO
--- NOTE | 2018-09-12 21:27 | NUR ---
PT TIMBO FROM HOME. PER RA, FAMILY CALLED CONCERNED PT IS NOT TAKING CARE OF HERSELF, PT LIVES ALONE. PER RA, PT WAS FOUND SITTING ON COUCH COVERED IN POOL OF URINE. PT ALSO RECENTLY TREATED FOR UTI. PT AAOX4. RESPIRATIONS EVEN AND UNLABORED. SKIN INTACT. NO ACUTE DISTRESS.WILL CONTINUE TO MONITOR
[2018-09-12] MEDS ORDERED: IV NS 0.9% 1,000 ML BAG IV ONE (22:30)
[2018-09-12] MEDS ORDERED: DILTIAZEM HCL 50 MG IV IV ONE (22:30)
[2018-09-12] MEDS ORDERED: DILTIAZEM HCL IV 125 MG in IV NS 0.9% 100 ML IV PRN (22:30)
--- NOTE | 2018-09-12 22:45 | NUR ---
IV INITIATED L WRIST 20G. LABS DRAWN FROM SITE. MEDIA EXECUTIVE AT BEDSIDE FOR BLOOD DRAW
[2018-09-12 22:54] LABS: BASOPHILS # (AUTO) 0.1 /CMM (0.0-0.2); BASOPHILS % (AUTO) 0.7 % (0.0-2.0); EOSINOPHILS % (AUTO) 0.8 % (0.0-6.0); HEMATOCRIT 42 % (33-45); HEMOGLOBIN 13.9 g/dL (11.5-14.8); LYMPHOCYTES # (AUTO) 1.5 /CMM (0.8-4.8); LYMPHOCYTES % (AUTO) 10.4 % (20.0-44.0); MEAN CORPUSCULAR HGB CONC 33 g/dl (31.0-36.0); MEAN CORPUSCULAR VOLUME 87 fL (82-100); MONOCYTES # (AUTO) 0.8 /CMM (0.1-1.30); MONOCYTES % (AUTO) 5.7 % (2.0-12.0); NEUTROPHILS # (AUTO) 11.6 /CMM (1.8-8.9); NEUTROPHILS % (AUTO) 82.4 % (43.0-81.0); PLATELET COUNT (AUTO) 183 /CMM (150-450); RED BLOOD CELL COUNT(AUTO) 4.86 MIL/uL (4.0-5.2)
[2018-09-12 23:03] LABS: CALCIUM, SERUM 8.6 mg/dL (8.5-10.1); CARBON DIOXIDE 21 mmol/L (21-32); CHLORIDE 97 mmol/L (98-107); GLUCOSE 102 mg/dL (74-106); POTASSIUM 5.1 mmol/L (3.5-5.1); SODIUM SERUM 131 mmol/L (136-145); UREA NITROGEN, BLOOD 26 mg/dL (7-18)
[2018-09-12 23:08] LABS: ALANINE AMINOTRANSFERASE 18 U/L (12-78); ALBUMIN 2.7 g/dL (3.4-5.0); ALKALINE PHOSPHATASE 78 U/L (46-116); ASPARTATE AMINOTRANSFERASE 33 U/L (15-37); BILIRUBIN,DIRECT 0.1 mg/dL (0.0-0.2); BILIRUBIN,TOTAL 0.9 mg/dL (0.2-1.0); TOTAL PROTEIN, SERUM 7.2 g/dL (6.4-8.2)
[2018-09-12 23:10] LABS: ACETAMINOPHEN 0 ug/ml (10-30); ALCOHOL, BLOOD < 3 mg/dL (0-0); SALICYLATE 1.1 mg/dL (2.8-20.0)
[2018-09-12 23:21] LABS: SERUM AMMONIA 68 umol/L (11-32)
[2018-09-12] MEDS ORDERED: DILTIAZEM HCL 25 MG IV ONE (23:22)
[2018-09-12] MEDS ORDERED: DILTIAZEM HCL 50 MG IV ONE (23:24)
[2018-09-13] VITALS (7 sets, daily range): BP systolic 103–132; BP diastolic 49–69
[2018-09-13] MEDS ORDERED: LACTULOSE 10 G/15 ML UDC (PYXIS) PO ONE
[2018-09-13] MEDS ORDERED: predniSONE 10 MG TABLET PO PRN (00:30)
[2018-09-13] MEDS ORDERED: ALBUTEROL FS 2.5 MG/0.5 ML VIAL.NEB IH PRN (00:30)
[2018-09-13] MEDS ORDERED: IV NS 0.9% 1,000 ML IV STA (00:32)
[2018-09-13] MEDS ORDERED: LEVOFLOXACIN 500 MG /D5W 100ML 500 MG in PREMIX 1 EA IV SCH (01:00)
[2018-09-13] MEDS ORDERED: ACETAMINOPHEN 325 MG TABLET PO PRN (01:00)
[2018-09-13] MEDS ORDERED: ONDANSETRON HCL/PF 4 MG/2 ML VIAL IVP PRN (01:00)
[2018-09-13] MEDS ORDERED: IV NS 0.9% 1,000 ML IV SCH (01:00)
[2018-09-13] MEDS ORDERED: VANCOMYCIN 1 GM in IV NS 0.9% 250 ML IV STA (01:04)
[2018-09-13] MEDS ORDERED: LEVOFLOXACIN 750 MG /D5W 150ML 750 MG in PREMIX 1 EA IV SCH (02:00)
[2018-09-13] MEDS ORDERED: LACTULOSE 10 G/15 ML UDC (PYXIS) ONE (02:10)
--- NOTE | 2018-09-13 02:20 | NUR ---
GAVE REPORT TO DIMAS RN FOR LEONARD
[2018-09-13] MEDS ORDERED: IV NS 0.9% 1,000 ML BAG IV ONE (02:30)
--- NOTE | 2018-09-13 02:49 | NUR ---
PT TRANSFERRED PER ACLS PROTOCOL
--- NOTE | 2018-09-13 02:49 | NUR ---
RN NOTE RECEIVED PATIENT FROM ER VIA RADHA, ALERT/ORIENTED X 3, ON ROOM AIR, A-FIB 99 BEATS/MIN, ON IV FLUIDS NS 0.9% BOLUS FROM ER, ON CONTINUOUS CARDIZEM DRIPS AT 15 ML/HR STARTED AT ER, ARCOS CATHETER WITHOUT BAG ATTACHED NOTED, LEFT WRIST 20 GAUGE NOTED, NO S/S OF INFECTION/INFILTRATION NOTED, SKIN PICTURES TAKEN, NO RESPIRATORY DISTRESS NOTED, BED IN THE LOWEST POSITION, ALL SAFETY MEASURES TAKEN Addendum: 09/13/18 at 0537 by HEENA TEJADA RN LEFT ARM SWELLING NOTED, PICTURES TAKEN, GILA HENRIQUEZ IS AWARE
[2018-09-13 02:54] LABS: APPEARANCE,URINE Slightly Cloudy (CLEAR); BILIRUBIN,URINE Negative (NEGATIVE); BLOOD, URINE Moderate Ery/uL (NEGATIVE); COLOR,URINE Other (YELLOW); KETONES,URINE Negative (NEGATIVE); LEUKOCYTE ESTERASE ,URINE Small (NEGATIVE); NITRITE, URINE Negative (NEGATIVE); PH,URINE 5.5 (5.0-8.0); PROTEIN,URINE 100 mg/dl (NEGATIVE); UGLUCOSE Negative (NEGATIVE); UROBILINOGEN,URINE 0.2 EU/dL (0.2)
[2018-09-13 03:31] LABS: BACTERIA,URINE None seen /HPF (None Seen); SQUAMOUS EPITHELIAL CELL,UR Few /HPF (None Seen)
--- NOTE | 2018-09-13 04:00 | NUR ---
RN NOTE DISCOLORATION OF THE LEFT THUMB NOTED, IV STOPPED IMMEDIATELY, IV WAS REMOVED, ELEVATED WITH 3 PILLOWS ABOVE THE HEART, NOTIFIED GILA DONOVAN NP REGARDING DISCOLORATION OF LEFT THUMB, PER ZION URIOSTEGUI NP ORDER ARTERIAL AND VENOUS DOPPLER ULTRASOUND NOW
[2018-09-13] MEDS ORDERED: LEVOFLOXACIN 750 MG /D5W 150ML 150 ML IV ONE (04:13)
[2018-09-13] MEDS ORDERED: VANCOMYCIN 1 GM VIAL ONE (04:13)
--- NOTE | 2018-09-13 06:22 | NUR ---
RN NOTE NOTIFIED GILA Ny EAP CONSULTANT THAT PATIENT HAS RING ON THE RING FINGER AND NOT ABLE TO REMOVE THE RING, PER GILA EAP CONSULTANT, REMOVE THE RING ONCE SWELLING DECREASE, WILL ENDORSE TO AM SHIFT, CHARGE NURSE IS AWARE
[2018-09-13] MEDS ORDERED: FEE PK DOSING 1 MIN EA MC ONE (07:19)
--- NOTE | 2018-09-13 07:35 | NUR ---
RN NOTE RECEIVED PATIENT AWAKE ALERT AND ORIENTED X 2-3, WITH EPISODES OF FORGETFULNESS. PATIENT IS ABLE TO MAKE THINGS KNOWN AND VERBALIZE NEEDS. BREATHING EVEN AND UNLABORED WITH NO DISTRESS NOTED. ON SEQUENCING MACHINE OPERATOR HR OF 95. NOTED WITH LEFT ARM SWELLING, ARM IS ELEVATED. F/C INTACT AND PATENT WITH ADEQUATE FLOW OF URINE. IV SITE INTACT IN PATENT WITH ONGOING FLUIDS ORDERED. CARDIZEM DRIP WAS DISCONTINUED. PATIENT REMAINS STABLE. AWAITING FOR MIDLINE PLACEMENT. ALL SAFETY MEASURES DONE. BE LOW AND LOCKED POSITION. WILL CONTINUE TO MONITOR.
[2018-09-13] MEDS: FLUTICASONE/VILANTEROL 1 EACH BLST.W.DEV IH SCH (08:49)
[2018-09-13] MEDS: FLUTICASONE PROPIONATE 16 GM BOTTLE NS SCH (08:50)
[2018-09-13] MEDS: LACTULOSE 10 G/15 ML UDC (PYXIS) PO SCH ×2 (08:51→16:08)
[2018-09-13] MEDS: APIXABAN 5 MG TABLET PO SCH ×2 (08:52→16:09)
[2018-09-13] MEDS: ASPIRIN EC 81 MG TABLET.DR PO SCH (08:53)
[2018-09-13] MEDS: FAMOTIDINE/PF INJ 20 MG/2 ML VIAL IV SCH ×2 (08:53→16:08)
[2018-09-13] MEDS ORDERED: TIOTROPIUM BROMIDE 6 CAP/BOX CAP.W.DEV IH SCH (09:00)
[2018-09-13] MEDS ORDERED: PANTOPRAZOLE 40 MG VIAL IV SCH (09:00)
--- NOTE | 2018-09-13 09:05 | NUR ---
RN NOTE VISITOR USE ASSISTANT BEDSIDE TO DRAW BLOOD FOR PATIENT.
[2018-09-13 09:19] LABS: BASOPHILS # (AUTO) 0.1 /CMM (0.0-0.2); BASOPHILS % (AUTO) 0.5 % (0.0-2.0); EOSINOPHILS % (AUTO) 2.6 % (0.0-6.0); HEMATOCRIT 40 % (33-45); LYMPHOCYTES # (AUTO) 1.7 /CMM (0.8-4.8); LYMPHOCYTES % (AUTO) 16.2 % (20.0-44.0); MEAN CORPUSCULAR HGB CONC 33 g/dl (31.0-36.0); MEAN CORPUSCULAR VOLUME 87 fL (82-100); MONOCYTES # (AUTO) 0.9 /CMM (0.1-1.30); MONOCYTES % (AUTO) 8.6 % (2.0-12.0); NEUTROPHILS # (AUTO) 7.6 /CMM (1.8-8.9); NEUTROPHILS % (AUTO) 72.1 % (43.0-81.0); PLATELET COUNT (AUTO) 161 /CMM (150-450); RED BLOOD CELL COUNT(AUTO) 4.56 MIL/uL (4.0-5.2); WHITE BLOOD COUNT (AUTO) 10.5 K/uL (4.3-11.0)
[2018-09-13 09:35] LABS: ALBUMIN 2.3 g/dL (3.4-5.0); BILIRUBIN,TOTAL 0.8 mg/dL (0.2-1.0); CALCIUM, SERUM 8.3 mg/dL (8.5-10.1); CREATININE 0.9 mg/dL (0.6-1.3); PHOSPHORUS 3.3 mg/dL (2.5-4.9); TOTAL PROTEIN, SERUM 6.4 g/dL (6.4-8.2)
[2018-09-13 09:46] LABS: THYROID STIMULATING HORMONE 1.514 uIU/mL (0.358-3.74)
[2018-09-13] MEDS: IV NS 0.9% 1,000 ML IV PRN (10:25)
--- NOTE | 2018-09-13 10:30 | NUR ---
RN NOTE PT/OT AT BEDSIDE FOR EVALUATION
--- NOTE | 2018-09-13 10:50 | NUR ---
RN NOTE MIDLINE NURSE AT BEDSIDE
--- NOTE | 2018-09-13 11:06 | NUR ---
RN NOTE MIDLINE NURSE INSERTED RIGHT UPPER ARM 18G MIDLINE
[2018-09-13] MEDS ORDERED: AMIODARONE 900 MG in IV D5W 482 ML IV PRN (12:00)
[2018-09-13] MEDS ORDERED: AMIODARONE 900 MG in IV D5W 500 ML IV PRN (12:00)
[2018-09-13] MEDS ORDERED: AMIODARONE 150 MG in IV D5W 100 ML IV ONE (12:00)
--- NOTE | 2018-09-13 13:30 | NUR ---
RN NOTE STARTED PATIENT ON AMIO DRIP 1MG/MIN X6HRS AND THEN DECREASE TO 0.5MG/MIN X 18 HOURS. PATIENT REMAINS STABLE NO DISTRESS NOTED. WILL CONTINUE TO MONITOR
[2018-09-13] MEDS: VANCOMYCIN 1.25 GM in IV D5W 500 ML IV SCH (16:10)
[2018-09-13] MEDS: CLOTRIMAZOLE 1% 15 GM TUBE TP SCH (18:25)
--- NOTE | 2018-09-13 19:19 | NUR ---
RN NOTE PATIENT REMAINED STABLE THROUGHOUT SHIFT, NO ACUTE CHANGES NOTED. PATIENT ON CONTINUOUS AMIO DRIP. WILL ENDORSE TO NEXT SHIFT TO CONTINUE CONTINUITY OF CARE.
[2018-09-13] MEDS: HYDROGEL DRESSING 90 GM TUBE TP SCH (21:05)
--- NOTE | 2018-09-13 22:10 | NUR ---
DIMAS RN OPENING NOTES RECEIVED PATIENT REPORT FROM FANI LACY FOR LEONARD. PT SLEEPING BUT EASY TO AROUSE, ALERT AND ORIENTED X 2. PATIENT IS ABLE TO MAKE NEEDS KNOWN. ON RA, BREATHING EVEN AND UNLABORED WITH NO DISTRESS NOTED. DENIES ANY PAIN AT THIS TIME. ON ELECTRICAL SUPERVISOR SR WITH HR OF 85 WITH PAC. NOTED WITH LEFT ARM SWELLING, ARM IS ELEVATED. F/C INTACT AND PATENT, OFF THE FLOOR. IV SITE SARAH MIDLINE INTACT IN PATENT WITH ONGOING FLUIDS ORDERED. PATIENT ON AMIODARONE DRIP AT 0.5MG/ML. PATIENT REMAINS STABLE. ALL SAFETY MEASURES IN PLACE. BED LOW AND LOCKED POSITION. WILL CONTINUE TO MONITOR PT CLOSELY.
[2018-09-13] MEDS: SIMVASTATIN 10 MG TABLET PO SCH (22:52)
[2018-09-13] MEDS: MONTELUKAST SODIUM (10MG) 10 MG TABLET PO SCH (22:52)
[2018-09-14] VITALS: BP 128/62
[2018-09-14 04:00] VITALS: BP 140/63
[2018-09-14] MEDS: VANCOMYCIN 1.25 GM in IV D5W 500 ML IV SCH ×2 (04:28→15:41)
[2018-09-14] MEDS: IV NS 0.9% 1,000 ML IV PRN ×2 (05:11→21:19)
[2018-09-14] MEDS: LEVOFLOXACIN 500 MG /D5W 100ML 500 MG in PREMIX 1 EA IV SCH (06:36)
[2018-09-14 06:48] LABS: CALCIUM, SERUM 7.6 mg/dL (8.5-10.1); CREATININE 0.7 mg/dL (0.6-1.3); POTASSIUM 3.8 mmol/L (3.5-5.1)
--- NOTE | 2018-09-14 06:59 | NUR ---
DIMAS RN CLOSING NOTES PATIENT RESTING IN BED, ALERT AND ORIENTED X3. PATIENT IS ABLE TO MAKE NEEDS KNOWN. ON RA, BREATHING EVEN AND UNLABORED WITH NO DISTRESS NOTED. DENIES PAIN AT THIS TIME. ON PRODUCT ACCOUNTANT SR WITH HR OF 83. NOTED WITH LEFT ARM SWELLING, ARM IS ELEVATED. F/C INTACT AND PATENT, OFF THE FLOOR, DRAINING YELLOW URINE NOTED. IV SITE SARAH MIDLINE AND R HAND 22G, INTACT AMD PATENT WITH ONGOING FLUIDS ORDERED. PATIENT ON AMIODARONE DRIP AT 0.5MG/ML. VITALS WNL. PATIENT REMAINS STABLE. ALL SAFETY MEASURES IN PLACE AND MAINTAINED. BED LOW AND LOCKED POSITION. ENDORSED TO AM RN FOR LEONARD.
[2018-09-14 08:00] VITALS: BP 99/60
--- NOTE | 2018-09-14 08:02 | NUR ---
WOUND CARE CONSULT WOUND CARE RECEIVED CONSULT FOR MULTIPLE WOUNDS. WOUND CARE WILL DEFER CONSULT AND TREATMENT PLANS TO PLASTIC SURGICAL TEAM WHO ARE CURRENTLY FOLLOWING THIS PATIENT. PATIENT WITH REGAN AT 14, ALL PRESSURE ULCER PREVENTION MEASURES ARE NOTED TO BE IN PLACE AT THIS TIME. WILL SEE PRN.
--- NOTE | 2018-09-14 08:09 | NUR ---
DIMAS RN NOTE PATIENT IN BED , RESTING COMFORTABLY, ON RA ,NO SOB NOTED AT THIS TIME, ON IVF AND AMIODARONE DRIP ORDERED 0.5 MG , INFUSING , BED IN LOWEST AND LOCKED POSITION. CALL LIGHT WITHIN REACH, ON TELE MONITOR SR WITH PAC HR 92 , ,PLAN OF CARE DISCUSSED WITH PATIENT
[2018-09-14] MEDS: APIXABAN 5 MG TABLET PO SCH ×2 (08:24→16:19)
[2018-09-14] MEDS: FLUTICASONE/VILANTEROL 1 EACH BLST.W.DEV IH SCH (08:25)
[2018-09-14] MEDS: ASPIRIN EC 81 MG TABLET.DR PO SCH (08:26)
[2018-09-14] MEDS: FLUTICASONE PROPIONATE 16 GM BOTTLE NS SCH (08:26)
[2018-09-14] MEDS: FAMOTIDINE/PF INJ 20 MG/2 ML VIAL IV SCH ×2 (08:28→16:18)
[2018-09-14] MEDS: LACTULOSE 10 G/15 ML UDC (PYXIS) PO SCH ×2 (08:33→16:23)
[2018-09-14] MEDS: Z GUARD REMEDY 2 OZ OINT TP SCH (08:43)
[2018-09-14] MEDS: HYDROGEL DRESSING 90 GM TUBE TP SCH ×2 (08:43→21:23)
[2018-09-14] MEDS: CLOTRIMAZOLE 1% 15 GM TUBE TP SCH ×2 (08:43→16:23)
--- NOTE | 2018-09-14 11:17 | NUR ---
DIMAS RN NOTE PER DR KRISTI DIXON TO LEAVE ARCOS CATH, PATENT HAS SEVERE WOUND ON BUTTOCKS ,ALSO PT AT BEDSIDE ,PATIENT ABLE TO STAND UP WITH MAX ASSISTANCE, SPUTUM CX COLLECTED ORDERED ,
[2018-09-14 12:00] VITALS: BP 118/52
[2018-09-14] MEDS: AMIODARONE HCL 200 MG TABLET PO SCH ×2 (12:56→16:18)
[2018-09-14] MEDS: IPRATROPIUM NEB FS 0.5 MG/2.5 ML AMPUL.NEB NEB SCH ×2 (13:30→19:24)
--- NOTE | 2018-09-14 15:00 | NUR ---
COMMERCIAL REAL ESTATE ATTORNEY NOTE ALL NEEDS ATTENDED NOT IN DISTRESS
[2018-09-14 16:00] VITALS: BP 119/47
[2018-09-14] MEDS: LACTOBACILLUS RHAMNOSUS GG 1 EACH CAP.SPRINK PO SCH (16:18)
--- NOTE | 2018-09-14 19:19 | NUR ---
LUSTER REPAIRER NOTE CONT ON IVF ORDERED, AT BEDSIDE WISH TO GIVE ALL INFORMATION ABOUT PATIENT, CHARGE NURSE AWARE PHONE NUMBER [phone]
--- NOTE | 2018-09-14 19:20 | NUR ---
RN Notes Patient awake, alert and oriented x3. HOB slightly elevated, on room and and tolerated well. Patient denies SOB,pain, nausea and vomiting. Midline on right upper arm patent and intact with ongoing IVF infusing well. Sheppard cath intact to gravity. Multiple wound on right hip, kept clean and dry, patient turns side to side. Plan of care discussed and verbalized understanding. Kept comfortable and attended, with call light within reach. Will continue to monitor patient.
[2018-09-14 20:00] VITALS: BP 106/55
--- NOTE | 2018-09-14 20:25 | NUR ---
RN Notes Received patient awake, HOB elevated with O2 inhalation at 6LPM via NC and tolerated well. Patient is alert and oriented x2, denies pain , nausea and vomiting at this time. Right upper arm PICC line patent and intact. Dressing BUE and BLE intact. Sheppard cath intact to gravity. Safety measures in place with call light within reach. Kept clean and dry. Will continue to monitor patient. Addendum: 09/15/18 at 0136 by ZANE KING RN Wrong entry , notes for different patient.
[2018-09-14] MEDS: SIMVASTATIN 10 MG TABLET PO SCH (21:25)
[2018-09-14] MEDS: MONTELUKAST SODIUM (10MG) 10 MG TABLET PO SCH (21:25)
[2018-09-15] VITALS: BP 105/61
[2018-09-15] MEDS: IPRATROPIUM NEB FS 0.5 MG/2.5 ML AMPUL.NEB NEB SCH ×4 (01:30→19:35)
[2018-09-15 04:00] VITALS: BP_SYST 105; BP_SYST 131; BP_DIAS 61; BP_DIAS 62
[2018-09-15] MEDS: VANCOMYCIN 1.25 GM in IV D5W 500 ML IV SCH ×2 (04:05→17:41)
[2018-09-15] MEDS: LEVOFLOXACIN 500 MG /D5W 100ML 500 MG in PREMIX 1 EA IV SCH (06:07)
--- NOTE | 2018-09-15 06:12 | NUR ---
RN Notes Patient sleep well overnight, vital signs stable, afebrile. Denies SOB, pain, nausea and vomiting. Sheppard cath intact to gravity with adequate output. Patient refused for wound care dressing and wants it to be done in the morning. Patient turns self from side to side. Safety measures and fall precaution observed. Will continue to monitor and will endorse accordingly.
[2018-09-15 06:53] LABS: CALCIUM, SERUM 7.5 mg/dL (8.5-10.1); CREATININE 0.7 mg/dL (0.6-1.3); POTASSIUM 3.5 mmol/L (3.5-5.1)
[2018-09-15 06:56] LABS: BASOPHILS # (AUTO) 0.1 /CMM (0.0-0.2); BASOPHILS % (AUTO) 1.2 % (0.0-2.0); EOSINOPHILS % (AUTO) 5.9 % (0.0-6.0); HEMATOCRIT 34 % (33-45); LYMPHOCYTES # (AUTO) 1.6 /CMM (0.8-4.8); MEAN CORPUSCULAR HGB CONC 33 g/dl (31.0-36.0); MEAN CORPUSCULAR VOLUME 87 fL (82-100); MONOCYTES # (AUTO) 0.7 /CMM (0.1-1.30); MONOCYTES % (AUTO) 9.6 % (2.0-12.0); NEUTROPHILS # (AUTO) 4.1 /CMM (1.8-8.9); NEUTROPHILS % (AUTO) 59.3 % (43.0-81.0); PLATELET COUNT (AUTO) 125 /CMM (150-450); RED BLOOD CELL COUNT(AUTO) 3.89 MIL/uL (4.0-5.2); WHITE BLOOD COUNT (AUTO) 6.9 K/uL (4.3-11.0)
--- NOTE | 2018-09-15 07:15 | NUR ---
RN OPENING NOTES PATIENT IN BED, ASLEEP BUT EASILY AROUSABLE. ALERT AND ORIENTED X2. ON TELE MONITOR, SR 90s. HAS GENERALIZED EDEMA. HAS A ARCOS CATH WITH YELLOW AND CLEAR URINE. ON BED REST. HAS MULTIPLE WOUNDS. HAS A RIGHT UA MIDLINE WITH NS RUNNING AT 100 ML/HR. LEVAQUIN FROM NOC STILL RUNNING AT THIS TIME. VANCO TROUGH AT 1500. PER OK TO KEEP ARCOS CATH. BED LOCKED AND IN LOWEST POSITION. CALL LIGHT WITHIN REACH. WILL CONTINUE TO MONITOR
[2018-09-15 08:00] VITALS: BP 103/56
[2018-09-15] MEDS: LACTOBACILLUS RHAMNOSUS GG 1 EACH CAP.SPRINK PO SCH ×2 (08:49→16:26)
[2018-09-15] MEDS: LACTULOSE 10 G/15 ML UDC (PYXIS) PO SCH ×4 (08:49→16:31)
[2018-09-15] MEDS: AMIODARONE HCL 200 MG TABLET PO SCH ×3 (08:49→16:26)
[2018-09-15] MEDS: FAMOTIDINE/PF INJ 20 MG/2 ML VIAL IV SCH (08:50)
[2018-09-15] MEDS: FLUTICASONE PROPIONATE 16 GM BOTTLE NS SCH (08:50)
[2018-09-15 09:00] VITALS: BP 103/56
[2018-09-15] MEDS: APIXABAN 5 MG TABLET PO SCH ×3 (09:00→16:28)
--- NOTE | 2018-09-15 09:06 | NUR ---
RN NOTES ELIQUIS HAS BEEN HELD, PLATELETS ARE LOW: 125
[2018-09-15] MEDS: PANTOPRAZOLE 40 MG TABLET.DR PO SCH (09:30)
[2018-09-15] MEDS: Z GUARD REMEDY 2 OZ OINT TP PRN (09:34)
[2018-09-15] MEDS: CLOTRIMAZOLE 1% 15 GM TUBE TP SCH ×2 (09:35→16:31)
[2018-09-15] MEDS: Z GUARD REMEDY 2 OZ OINT TP SCH (09:35)
[2018-09-15] MEDS: HYDROGEL DRESSING 90 GM TUBE TP SCH ×2 (09:35→21:18)
--- NOTE | 2018-09-15 09:40 | NUR ---
RN NOTES CEPHULAC NOT ADMINISTERED, PATIENT REFUSED. MEDICATION ALREADY OPENED, WASTED MISC. PATIENT HAD A LARGE BM RIGHT BEFORE ADMINISTERING CEPHULAC
--- NOTE | 2018-09-15 10:09 | NUR ---
RN NOTES ABRAN SOLANO OK'D TO GIVE ELIQUIS
--- NOTE | 2018-09-15 12:48 | NUR ---
RN NOTES PER PHARMACY, DR BERRY SAID TO CONTINUE AMIODARONE
--- NOTE | 2018-09-15 15:32 | NUR ---
RN NOTES WOUND CARE DONE. ORDERED MORE HYRROGEL FROM PHARMACY PATIENT WAS SEEN BY PT TODAY. DID OK WITH SITTING BY THE EDGE OF THE BED AND DID 5 STEPS FORWARD AND BACK AROUND PATIENT'S ROOM. OT HERE TO SEE PATIENT AT THIS TIME TO DO SOME MORE EXERCISES
[2018-09-15 16:00] VITALS: BP 125/92
--- NOTE | 2018-09-15 16:30 | NUR ---
RN NOTES CALLED PHARMACY TO GET THE VANCO. STILL WAITING. VANCO TROUGH 13
--- NOTE | 2018-09-15 18:29 | NUR ---
RN CLOSING NOTES PATIENT IN BED, AWAKE AND ALERT. WAS DONE EATING DINNER. ARCOS CATH 800ML OUTPUT. PATIENT REFUSED LACTULOSE TWICE TODAY. WOUND TX DONE. HAS RIGHT UPPER ARM MIDLINE WITH VANCO RUNNING RIGHT NOW. DC PLANNING PER MD. SNF PLACEMENT PENDING, [facility]. BED LOCKED AND IN LOWEST POSITION. CALL LIGHT WITHIN REACH. WILL ENDORSE TO NOC SHIFT FOR LEONARD
--- NOTE | 2018-09-15 19:44 | NUR ---
MS RN NOTE: RECEIVED PT ON BED ALERT ANS ORIENTED X3, ABLE TO MAKE NEEDS KNOWN. NO ACUTE DISTRESS NOTED. NO COMPLAINTS OF PAIN OR DISCOMFORT AT THIS TIME. ON ROOM AIR, NO SOB NOTED. RIGHT UPPER ARM MIDLINE INTACT AND PATENT, FLUSHING WELL. ARCOS CATH INTACT, DRAINING CLEAR YELLOW URINE OUTPUT. KEPT CLEAN, DRY AND COMFORTABLE. SAFETY AND FALL PRECAUTIONS OBSERVED AND MAINTAINED. WILL CONTINUE TO MONITOR PT.
[2018-09-15 20:00] VITALS: BP 109/46
[2018-09-15] MEDS: MONTELUKAST SODIUM (10MG) 10 MG TABLET PO SCH (21:18)
[2018-09-15] MEDS: SIMVASTATIN 10 MG TABLET PO SCH (21:18)
--- NOTE | 2018-09-15 23:30 | NUR ---
RT NOTE PATIENT REFUSED NOC CPAP AT THIS TIME. NURSE, AALIYAH, NOTIFIED AND IS AWARE. NO SOB NOTED.
--- NOTE | 2018-09-15 23:30 | NUR ---
MS RN NOTE: PATIENT REFUSED NOCTURNAL CPAP. EXPLAINED RISKS AND BENEFITS BUT PT STILL REFUSED. CHARGE NURSE ROSCOE AWARE. WILL CONTINUE TO MONITOR PT
[2018-09-16] MEDS: IPRATROPIUM NEB FS 0.5 MG/2.5 ML AMPUL.NEB NEB SCH ×4 (01:30→19:56)
[2018-09-16] MEDS: VANCOMYCIN 1.25 GM in IV D5W 500 ML IV SCH ×2 (03:25→16:11)
[2018-09-16 04:00] VITALS: BP 110/42
[2018-09-16] MEDS: LEVOFLOXACIN 500 MG /D5W 100ML 500 MG in PREMIX 1 EA IV SCH (05:44)
[2018-09-16 06:20] LABS: BASOPHILS # (AUTO) 0.1 /CMM (0.0-0.2); BASOPHILS % (AUTO) 1.2 % (0.0-2.0); EOSINOPHILS % (AUTO) 4.8 % (0.0-6.0); HEMATOCRIT 34 % (33-45); HEMOGLOBIN 11.3 g/dL (11.5-14.8); LYMPHOCYTES # (AUTO) 1.8 /CMM (0.8-4.8); LYMPHOCYTES % (AUTO) 23.7 % (20.0-44.0); MEAN CORPUSCULAR HGB CONC 33 g/dl (31.0-36.0); MEAN CORPUSCULAR VOLUME 87 fL (82-100); MONOCYTES # (AUTO) 0.6 /CMM (0.1-1.30); MONOCYTES % (AUTO) 7.8 % (2.0-12.0); NEUTROPHILS # (AUTO) 4.7 /CMM (1.8-8.9); NEUTROPHILS % (AUTO) 62.5 % (43.0-81.0); PLATELET COUNT (AUTO) 141 /CMM (150-450); RED BLOOD CELL COUNT(AUTO) 3.94 MIL/uL (4.0-5.2); WHITE BLOOD COUNT (AUTO) 7.5 K/uL (4.3-11.0)
--- NOTE | 2018-09-16 06:36 | NUR ---
MS RN NOTE: NO CHANGES NOTED THROUGHOUT THE SHIFT. NO APPARENT DISTRESS NOTED. ON ROOM AIR, NO SOB NOTED. DENIES PAIN AND DISCOMFORT AT THIS TIME. RIGHT UPPER ARM MIDLINE INTACT AND PATENT, FLUSHING WELL. ARCOS CATH INTACT AND PATENT, DRAINED 2000ML OF URINE OUTPUT. CALL LIGHT PLACED WITHIN REACH. KEPT CLEAN, DRY AND COMFORTABLE. SAFETY AND FALL PRECAUTIONS OBSERVED AND MAINTAINED. WILL ENDORSE TO DAY SHIFT RN FOR CONTINUITY OF CARE
[2018-09-16 06:39] LABS: CALCIUM, SERUM 7.9 mg/dL (8.5-10.1); CREATININE 0.8 mg/dL (0.6-1.3); POTASSIUM 3.6 mmol/L (3.5-5.1)
[2018-09-16 08:00] VITALS: BP 130/70
[2018-09-16] MEDS: LACTOBACILLUS RHAMNOSUS GG 1 EACH CAP.SPRINK PO SCH ×2 (08:29→17:47)
[2018-09-16] MEDS: LACTULOSE 10 G/15 ML UDC (PYXIS) PO SCH ×2 (08:30→17:48)
[2018-09-16] MEDS: PANTOPRAZOLE 40 MG TABLET.DR PO SCH (08:31)
[2018-09-16] MEDS: APIXABAN 5 MG TABLET PO SCH ×2 (08:32→17:48)
[2018-09-16] MEDS: AMIODARONE HCL 200 MG TABLET PO SCH ×3 (08:40→17:47)
[2018-09-16] MEDS: HYDROGEL DRESSING 90 GM TUBE TP SCH ×2 (08:41→21:10)
[2018-09-16] MEDS: FLUTICASONE PROPIONATE 16 GM BOTTLE NS SCH (08:41)
[2018-09-16] MEDS: CLOTRIMAZOLE 1% 15 GM TUBE TP SCH ×2 (08:41→17:47)
[2018-09-16] MEDS: Z GUARD REMEDY 2 OZ OINT TP SCH (08:41)
[2018-09-16 12:00] VITALS: BP 134/70
--- NOTE | 2018-09-16 18:46 | NUR ---
Pt alert and oriented all day,all dressing changed to buttocks area as ordered,pt received vancomycin as ordered no acute s/s of reaction noted.
--- NOTE | 2018-09-16 19:30 | NUR ---
RN NOTES RECEIVED PT. AWAKE ON BED, A/OX3, OBESE, F/C DRAINING CLEAR YELLOW URINE, DENIES PAIN , NO SOB CALL LIGHT WITHIN REACH, [id number], CONTINUE TO MONITOR
[2018-09-16 20:00] VITALS: BP 102/56
[2018-09-16] MEDS: MONTELUKAST SODIUM (10MG) 10 MG TABLET PO SCH (22:17)
[2018-09-16] MEDS: SIMVASTATIN 10 MG TABLET PO SCH (22:17)
[2018-09-17] MEDS: IPRATROPIUM NEB FS 0.5 MG/2.5 ML AMPUL.NEB NEB SCH ×4 (01:25→20:13)
--- NOTE | 2018-09-17 03:50 | NUR ---
RT NOTES NO DISTRESS NOTED. PT REFUSED BIPAP. NO SOB NOTED. WILL CONT TO MONITOR PT.
[2018-09-17 04:00] VITALS: BP 125/62
[2018-09-17] MEDS: VANCOMYCIN 1.25 GM in IV D5W 500 ML IV SCH ×2 (04:08→17:31)
--- NOTE | 2018-09-17 06:43 | NUR ---
RN NOTES AWAKE, MORNING CARE RENDERED, DENIES PAIN, NO SOB, CALL LIGHT WITHIN REACH, [id number], PT. NEEDS ATTENDED
[2018-09-17 07:46] LABS: CALCIUM, SERUM 8.3 mg/dL (8.5-10.1); CREATININE 0.7 mg/dL (0.6-1.3); POTASSIUM 4.3 mmol/L (3.5-5.1)
[2018-09-17 08:00] VITALS: BP 129/59
[2018-09-17] MEDS: LACTULOSE 10 G/15 ML UDC (PYXIS) PO SCH ×2 (08:15→15:39)
[2018-09-17] MEDS: PANTOPRAZOLE 40 MG TABLET.DR PO SCH (08:15)
[2018-09-17] MEDS: LEVOFLOXACIN (500MG) 500 MG TABLET PO SCH (08:15)
[2018-09-17] MEDS: LACTOBACILLUS RHAMNOSUS GG 1 EACH CAP.SPRINK PO SCH ×2 (08:15→17:31)
[2018-09-17] MEDS: AMIODARONE HCL 200 MG TABLET PO SCH ×3 (08:17→17:32)
[2018-09-17] MEDS: FLUTICASONE PROPIONATE 16 GM BOTTLE NS SCH (08:19)
[2018-09-17] MEDS: APIXABAN 5 MG TABLET PO SCH ×2 (08:21→17:33)
[2018-09-17] MEDS: Z GUARD REMEDY 2 OZ OINT TP SCH (08:22)
[2018-09-17] MEDS: HYDROGEL DRESSING 90 GM TUBE TP SCH ×2 (08:23→22:08)
[2018-09-17] MEDS: CLOTRIMAZOLE 1% 15 GM TUBE TP SCH ×2 (08:23→17:34)
--- NOTE | 2018-09-17 11:30 | NUR ---
care endorsed to me from am RN - patient resting- no complaints of pain- safety precautions in place- will continue to monitor report and record
[2018-09-17 12:00] VITALS: BP 130/59
--- NOTE | 2018-09-17 12:00 | NUR ---
patient resting in bed- no complaints- no s/s of distress - safety precautions in place -vitals stable-will continue to monitor report and record
--- NOTE | 2018-09-17 15:48 | NUR ---
patient resting in bed- no complaints- no s/s of distress - safety precautions in place -patient has worked wit ot - possibly pt today as well- patient had questions about placement and which snf she will be placed into- patient had a bm- tolerating diet - remains pain free -vitals stable-will continue to monitor report and record
[2018-09-17 16:00] VITALS: BP 129/64
--- NOTE | 2018-09-17 18:07 | NUR ---
vitals stable - no complaints of pain- safety precautions in place- poc discussed with patient - aware and agrees to snf placement- tolerating diet - wound care completed - will provided bedside sbar to pm shift - will continue to monitor report and record
--- NOTE | 2018-09-17 19:20 | NUR ---
RN OPEN NOTES RECEIVED PATIENT AWAKE IN BED. A/OX3. NO SIGNS OF DISTRESS OR DISCOMFORT. BREATHING EVEN AND UNLABORED. DENIES ANY PAIN AT THIS TIME. HAS SARAH MIDLINE WITH VANCO INFUSING, PATENT AND INTACT, NO SIGNS OF REDNESS OR INFILTRATION. HAD F/C INTACT DRAINING CLEAR LUZ ELENA FLUID. BED IN LOW LOCKED POSITION WITH SIDE RAILS X2. CALL LIGHT WITHIN REACH. WILL CONTINUE TO MONITOR.
[2018-09-17 20:00] VITALS: BP 116/52
[2018-09-17] MEDS: MONTELUKAST SODIUM (10MG) 10 MG TABLET PO SCH (22:08)
[2018-09-17] MEDS: SIMVASTATIN 10 MG TABLET PO SCH (22:08)
--- NOTE | 2018-09-18 00:04 | NUR ---
RT NOTES NO DISTRESS NOTED. PT REFUSED NOC BIPAP AT THIS TIME. PT ON RA WITH NO SOB/ DISTRESS NOTED./ WILL CONT. TO MONITOR.
[2018-09-18] MEDS: IPRATROPIUM NEB FS 0.5 MG/2.5 ML AMPUL.NEB NEB SCH ×4 (01:27→19:41)
[2018-09-18] MEDS: VANCOMYCIN 1.25 GM in IV D5W 500 ML IV SCH (03:57)
[2018-09-18 04:00] VITALS: BP 125/76
[2018-09-18 07:26] LABS: CALCIUM, SERUM 8.3 mg/dL (8.5-10.1); CREATININE 0.8 mg/dL (0.6-1.3); POTASSIUM 3.9 mmol/L (3.5-5.1)
--- NOTE | 2018-09-18 07:28 | NUR ---
RN CLOSED NOTES PATIENT RESTING IN BED. A/OX3. NO SIGNS OF DISTRESS OR DISCOMFORT. BREATHING EVEN AND UNLABORED. DENIES ANY PAIN AT THIS TIME. HAS SARAH MIDLINE, PATENT AND INTACT, NO SIGNS OF REDNESS OR INFILTRATION. HAS F/C INTACT DRAINING CLEAR LUZ ELENA FLUID. ALL NEEDS MET. NO SIGNIFICANT CHANGES THROUGH THE NIGHT. BED IN LOW LOCKED POSITION WITH SIDE RAILS X2. CALL LIGHT WITHIN REACH. WILL ENDORSE TO AM SHIFT FOR LEONARD. .
--- NOTE | 2018-09-18 07:30 | NUR ---
MS RN NOTES RECEIVED PT IN BED, A/OX3. ON ROOM AIR. O2 SAT 96%. NO S/SX OF LABORED BREATHING. O2 SAT WNL. F/C IN PLACE DRAINING CLEAR YELLOW URINE. PT IS ABLE TO TURN INDEPENDENTLY IN BED. SARAH ML S/L C/D/P/I. SIDE RAILS UP X2. BED IN LOCKED/LOWEST POSITION. CALL LIGHT IN REACH. WILL CONT TO MONITOR.
[2018-09-18 08:00] VITALS: BP 106/64
[2018-09-18] MEDS: LACTULOSE 10 G/15 ML UDC (PYXIS) PO SCH ×2 (09:00→16:39)
[2018-09-18] MEDS: FLUTICASONE PROPIONATE 16 GM BOTTLE NS SCH (09:11)
[2018-09-18] MEDS: LACTOBACILLUS RHAMNOSUS GG 1 EACH CAP.SPRINK PO SCH ×2 (09:11→17:07)
[2018-09-18] MEDS: AMIODARONE HCL 200 MG TABLET PO SCH ×3 (09:12→17:08)
[2018-09-18] MEDS: PANTOPRAZOLE 40 MG TABLET.DR PO SCH (09:12)
[2018-09-18] MEDS: LEVOFLOXACIN (500MG) 500 MG TABLET PO SCH (09:13)
[2018-09-18] MEDS: APIXABAN 5 MG TABLET PO SCH ×2 (09:15→17:09)
[2018-09-18] MEDS: CLOTRIMAZOLE 1% 15 GM TUBE TP SCH ×2 (09:17→17:14)
[2018-09-18] MEDS: HYDROGEL DRESSING 90 GM TUBE TP SCH ×2 (09:18→21:06)
[2018-09-18] MEDS: Z GUARD REMEDY 2 OZ OINT TP SCH (09:18)
[2018-09-18 12:00] VITALS: BP 110/61
[2018-09-18 16:00] VITALS: BP 110/61
[2018-09-18] MEDS: CEPHALEXIN MONOHYDRATE 250 MG CAPSULE PO SCH (17:07)
--- NOTE | 2018-09-18 18:40 | NUR ---
MS RN END OF SHIFT NOTES PT STABLE. NO SIGNIFICANT CHANGES. VS STABLE. WILL ENDORSE TO PM NURSE FOR LEONARD.
[2018-09-18 20:00] VITALS: BP 136/77
--- NOTE | 2018-09-18 20:39 | NUR ---
MS Rn opening NOTES: RECEIVED PT IN BED, A/OX3. ON ROOM AIR. O2 SAT 96%.NO SIGNS ON ACUTE DISTESS. APPREARS COMFORTABLE IN BED. . O2 SAT WNL. F/C IN PLACE DRAINING CLEAR YELLOW URINE. PT IS ABLE TO TURN INDEPENDENTLY IN BED. SARAH ML S/L C/D/P/I. SIDE RAILS UP X2. BED IN LOCKED/LOWEST POSITION. CALL LIGHT IN REACH. WILL CONT TO MONITOR.
[2018-09-18] MEDS: SIMVASTATIN 10 MG TABLET PO SCH (22:00)
[2018-09-18] MEDS: MONTELUKAST SODIUM (10MG) 10 MG TABLET PO SCH (22:00)
[2018-09-19] MEDS: IPRATROPIUM NEB FS 0.5 MG/2.5 ML AMPUL.NEB NEB SCH ×4 (01:20→20:42)
[2018-09-19 04:00] VITALS: BP 142/69
[2018-09-19] MEDS: CEPHALEXIN MONOHYDRATE 250 MG CAPSULE PO SCH ×4 (06:19→17:24)
--- NOTE | 2018-09-19 06:37 | NUR ---
RN MS CLOSING NOTES: RECEIVED PATIENT AWAKE IN BED. A/OX3. NO SIGNS OF DISTRESS NO SIGNS OF SOB. DENIES PAIN. HAS SARAH MIDLINE IN TACT.T, NO SIGNS OF . INCONTINENT, USING DIAPER. NO BM DURING SHIFT. PT STABLE DURING SHIFT AND WOUND CARE DONE AND ALL NEEDS MET. BED IN LOW LOCKED POSITION WITH SIDE RAILS X2. CALL LIGHT WITHIN REACH. WILL ENDORSE TO AM SHIFT TO CONTINUE PLAN OF CARE. .
[2018-09-19 07:16] LABS: CALCIUM, SERUM 8.5 mg/dL (8.5-10.1); CREATININE 0.8 mg/dL (0.6-1.3)
[2018-09-19 08:00] VITALS: BP_SYST 120; BP_SYST 130; BP_SYST 133; BP_DIAS 45; BP_DIAS 62; BP_DIAS 72
--- NOTE | 2018-09-19 08:00 | NUR ---
MS1/RN AM SHIFT INITIAL NOTES RECEIVED PT AWAKE IN BED, A/O X 3, DENIES ANY SYMPTOMS, NO ACUTE CHANGE OF CONDITION. ON ROOM AIR SATURATING @ 95%, RESPIRATIONS EVEN & UNLABORED. MIDLINE FLUSHED, PATENT, NO S/S OF INFECTION. PT IS COMFORTABLE, SCHEDULED AM MEDS TO BE GIVEN. CL WITHIN REACHED AND SAFETY MAINTAINED. ON GOING MONITORING. Addendum: 09/19/18 at 1011 by DHAVAL GIVENS RN ADDENDUM: PT REFUSED LACTULOSE MEDICATION, RISKS & BENEFITS EXPLAINED STILL REFUSED MEDICATION, PER PT SHE CAN GO TO THE BATHROOM WITHOUT THE MEDICATION. WILL NOTIFY PRIMARY.
[2018-09-19] MEDS: FLUTICASONE PROPIONATE 16 GM BOTTLE NS SCH (08:27)
[2018-09-19] MEDS: LACTOBACILLUS RHAMNOSUS GG 1 EACH CAP.SPRINK PO SCH ×2 (08:30→17:18)
[2018-09-19] MEDS: LACTULOSE 10 G/15 ML UDC (PYXIS) PO SCH ×2 (08:30→17:00)
[2018-09-19] MEDS: AMIODARONE HCL 200 MG TABLET PO SCH ×3 (08:31→17:19)
[2018-09-19] MEDS: PANTOPRAZOLE 40 MG TABLET.DR PO SCH (08:32)
[2018-09-19] MEDS: APIXABAN 5 MG TABLET PO SCH ×2 (08:32→17:18)
[2018-09-19] MEDS: HYDROGEL DRESSING 90 GM TUBE TP SCH ×2 (08:32→21:40)
[2018-09-19] MEDS: Z GUARD REMEDY 2 OZ OINT TP SCH (08:32)
[2018-09-19] MEDS: CLOTRIMAZOLE 1% 15 GM TUBE TP SCH ×2 (08:33→17:20)
[2018-09-19 16:00] VITALS: BP 128/80
--- NOTE | 2018-09-19 19:30 | NUR ---
MS1/RN AM SHIFT END NOTES NO ACUTE CHANGE OF CONDITION NOTED DURING THE SHIFT, ALL NEEDS MET. PT ENDORSED TO PM NURSE TO CONTINUE CARE. CL WITHIN REACHED AND SAFETY MAINTAINED.
[2018-09-19] MEDS: MONTELUKAST SODIUM (10MG) 10 MG TABLET PO SCH (21:41)
[2018-09-19] MEDS: SIMVASTATIN 10 MG TABLET PO SCH (21:42)
[2018-09-20] VITALS: BP 109/87
[2018-09-20] MEDS: CEPHALEXIN MONOHYDRATE 250 MG CAPSULE PO SCH ×4 (00:45→18:12)
[2018-09-20] MEDS: IPRATROPIUM NEB FS 0.5 MG/2.5 ML AMPUL.NEB NEB SCH ×4 (01:30→19:47)
[2018-09-20 06:15] LABS: BASOPHILS # (AUTO) 0.1 /CMM (0.0-0.2); BASOPHILS % (AUTO) 1.1 % (0.0-2.0); EOSINOPHILS % (AUTO) 5.1 % (0.0-6.0); HEMATOCRIT 40 % (33-45); HEMOGLOBIN 13.1 g/dL (11.5-14.8); LYMPHOCYTES # (AUTO) 2.1 /CMM (0.8-4.8); LYMPHOCYTES % (AUTO) 26.4 % (20.0-44.0); MEAN CORPUSCULAR HGB CONC 33 g/dl (31.0-36.0); MEAN CORPUSCULAR VOLUME 87 fL (82-100); MONOCYTES # (AUTO) 0.6 /CMM (0.1-1.30); MONOCYTES % (AUTO) 7.3 % (2.0-12.0); NEUTROPHILS # (AUTO) 4.7 /CMM (1.8-8.9); NEUTROPHILS % (AUTO) 60.1 % (43.0-81.0); PLATELET COUNT (AUTO) 181 /CMM (150-450); RED BLOOD CELL COUNT(AUTO) 4.59 MIL/uL (4.0-5.2); WHITE BLOOD COUNT (AUTO) 7.8 K/uL (4.3-11.0)
[2018-09-20 06:40] LABS: CALCIUM, SERUM 8.6 mg/dL (8.5-10.1); CREATININE 0.9 mg/dL (0.6-1.3)
--- NOTE | 2018-09-20 07:30 | NUR ---
RN NOTES RECEIVED PATIENT IN BED, A/A/O X 3, ABLE TO COMMUNICATE WELL. ON ROOM AIR, BREATHING UNLABORED, SATURATING @ 97%. NO COMPLAINTS OF PAIN OF ANY KIND. MIDLINE IN PLACE AND PATENT UPON FLUSHING, NO S/S OF INFECTION. ARCOS CATHETER IN PLACE AND PATENTLY DRAINING VIA GRAVITY TO CLEAR YELLOW URINE. ENCOURAGE TO VERBALIZE FEELING\S AND CONCERNS. SAFETY MEASURES OBSERVED AND MAINTAINED. CALL LIGHT WITHIN REACHED. WILL CONTINUE TO MONITOR AND ANTICIPATE NEEDS
[2018-09-20 08:00] VITALS: BP 118/78
[2018-09-20] MEDS: Z GUARD REMEDY 2 OZ OINT TP SCH (09:00)
[2018-09-20] MEDS: LACTULOSE 10 G/15 ML UDC (PYXIS) PO SCH ×2 (09:00→09:36)
[2018-09-20] MEDS: PANTOPRAZOLE 40 MG TABLET.DR PO SCH (09:36)
[2018-09-20] MEDS: FLUTICASONE PROPIONATE 16 GM BOTTLE NS SCH (09:36)
[2018-09-20] MEDS: LACTOBACILLUS RHAMNOSUS GG 1 EACH CAP.SPRINK PO SCH ×2 (09:36→18:12)
[2018-09-20] MEDS: AMIODARONE HCL 200 MG TABLET PO SCH ×3 (09:37→18:12)
[2018-09-20] MEDS: APIXABAN 5 MG TABLET PO SCH ×2 (09:43→18:13)
[2018-09-20] MEDS: HYDROGEL DRESSING 90 GM TUBE TP SCH ×2 (09:43→20:11)
[2018-09-20] MEDS: Z GUARD REMEDY 2 OZ OINT TP PRN (09:44)
[2018-09-20] MEDS: CLOTRIMAZOLE 1% 15 GM TUBE TP SCH ×2 (09:44→18:12)
--- NOTE | 2018-09-20 15:17 | NUR ---
RN NOTES OBTAINED ORDER TO GET CONSENT FOR DEBRIDEMENT OF THE SACRAL WOUND, BILATERAL BUTTOCKS AND RIGHT THIGH. WENT TO BED SIDE BUT PATIENT REFUSED TO CONSENT.
[2018-09-20 16:00] VITALS: BP 127/69
--- NOTE | 2018-09-20 19:30 | NUR ---
RN MS OPENING NOTES RECEIVED PATIENT IN BED AWAKE, ALERT AND ORIENTED X3, VERBALLY RESPONSIVE, ABLE TO MAKE NEEDS KNOWN. BREATHING EVEN AND UNLABORED. NO SOB NOTED. TOLERATING ROOM AIR. NO COMPLAINTS OF PAIN OR DISCOMFORT. NO FACIAL GRIMACING. RIGHT UPPER ARM MIDLINE INTACT AND PATENT. SKIN DRY AND WARM TO TOUCH. AFEBRILE. PATIENT WITH ARCOS CATH, INTACT AND DRAINING. ALL OTHER NEEDS MET. SAFETY MEASURES IN PLACE. CALL LIGHT WITHIN REACH. WILL CONTINUE TO MONITOR.
--- NOTE | 2018-09-20 19:41 | NUR ---
RN NOTES' ENDORSED PATIENT FOR CONTINUITY OF CARE. NOT ON ANY FORM OF DISTRESS. NO ACUTE CHANGES WITHIN THIS SHIFT. ALL NURSING NEEDS ATTENDED AND MET. CALL LIGHT WITHIN REACH. SAFETY MEASURES IN PLACE AT ALL TIME
[2018-09-20 20:00] VITALS: BP 111/64
[2018-09-20] MEDS: MONTELUKAST SODIUM (10MG) 10 MG TABLET PO SCH (22:07)
[2018-09-20] MEDS: SIMVASTATIN 10 MG TABLET PO SCH (22:07)
[2018-09-21] MEDS: CEPHALEXIN MONOHYDRATE 250 MG CAPSULE PO SCH ×4 (00:10→17:06)
[2018-09-21] MEDS: IPRATROPIUM NEB FS 0.5 MG/2.5 ML AMPUL.NEB NEB SCH ×3 (01:20→13:30)
[2018-09-21 04:00] VITALS: BP 99/62
--- NOTE | 2018-09-21 05:35 | NUR ---
RN MS NOTES PATIENT REFUSED TO HAVE DRESSINGS CHANGES WELL GOWN AND BEDSHEETS. ENCOURAGED MULTIPLE TIMES BUT STILL REFUSED. ASHLEIGH CAR WITNESSED ALL REFUSALS. WILL TRY AGAIN.
--- NOTE | 2018-09-21 06:51 | NUR ---
RN MS NOTES PATIENT REFUSED AGAIN TO HAVE DRESSINGS CHANGES WELL GOWN AND BEDSHEETS. ENCOURAGED MULTIPLE TIMES BUT STILL REFUSED. ASHLEIGH CAR WITNESSED ALL REFUSALS. PER PATIENT "LATER." WILL INFORM ONCOMING SHIFT.
--- NOTE | 2018-09-21 06:52 | NUR ---
RN MS CLOSING NOTES PATIENT RESTING IN BED. NOT IN ANY DISTRESS. NO ACUTE CHANGES THROUGHOUT SHIFT. BREATHING EVEN AND UNLABORED. NO SOB NOTED. TOLERATING ROOM AIR. NO COMPLAINTS OF PAIN OR DISCOMFORT. NO FACIAL GRIMACING. RIGHT UPPER ARM MIDLINE INTACT AND PATENT. ARCOS CATH INTACT AND DRAINING. ALL OTHER NEEDS MET. SAFETY MEASURES IN PLACE. CALL LIGHT WITHIN REACH. WILL ENDORSE TO ONCOMING FOR LEONARD.
--- NOTE | 2018-09-21 07:10 | NUR ---
MS RN OPENING NOTES RECEIVED PT LYING ON BED.ALERT/ORIENTED X4.ON ROOM AIR,TOLERATING WELL.NO SOB AND ACUTE DISTRESS NOTED.HAS ARCOS CATHETER IS IN PLACE.RIGHT UA MIDLINE PRESENT,SITE IS CLEAN,DRY AND INTACT.SAFETY IS MAINTAINED AT ALL TIMES.BED IS IN LOW POSITION AND LOCKED.CALL LIGHT IS WITHIN REACH.WILL CONTINUE TO MONITOR THE PT CLOSELY.
[2018-09-21 08:00] VITALS: BP 108/67
[2018-09-21] MEDS: PANTOPRAZOLE 40 MG TABLET.DR PO SCH (08:39)
[2018-09-21] MEDS: FLUTICASONE PROPIONATE 16 GM BOTTLE NS SCH (08:39)
[2018-09-21] MEDS: LACTOBACILLUS RHAMNOSUS GG 1 EACH CAP.SPRINK PO SCH ×2 (08:39→16:41)
[2018-09-21] MEDS: LACTULOSE 10 G/15 ML UDC (PYXIS) PO SCH ×2 (08:40→16:42)
[2018-09-21] MEDS: AMIODARONE HCL 200 MG TABLET PO SCH ×3 (08:40→16:41)
[2018-09-21] MEDS: APIXABAN 5 MG TABLET PO SCH ×2 (08:44→16:42)
[2018-09-21] MEDS ORDERED: SIMV10TA6 PO (10:51)
[2018-09-21] MEDS ORDERED: CEPH250C PO (10:51)
[2018-09-21] MEDS ORDERED: APIX5TAB PO (10:51)
[2018-09-21] MEDS ORDERED: AMIO200T4 PO (10:51)
[2018-09-21] MEDS ORDERED: AMIO200T7 PO (10:51)
[2018-09-21] MEDS: Z GUARD REMEDY 2 OZ OINT TP SCH (12:28)
[2018-09-21] MEDS: HYDROGEL DRESSING 90 GM TUBE TP SCH (12:28)
[2018-09-21] MEDS: CLOTRIMAZOLE 1% 15 GM TUBE TP SCH ×2 (12:28→16:42)
--- NOTE | 2018-09-21 15:45 | NUR ---
MS RN NOTES PT REPORT GIVEN TO FANI WILLIS IN [facility].
[2018-09-21 16:00] VITALS: BP 109/63
[2018-09-21 16:41] VITALS: BP 109/63
--- NOTE | 2018-09-21 17:49 | NUR ---
[place] NOTES PT IS DISCHARGED TO [facility].PT IS CLEAN AND DRY.VITAL SIGNS ARE WNL.ALL THE DUE MEDS ARE GIVEN.RIGHT UA MIDLINE IS PRESENT A [facility] REQUEST,CHARGE NURSE YEN MADE AWARE.FC IS IN PLACE.WOUND DRESSING HAS DONE.ON ROOM AIR,TOLERATING WELL.NO SOB AND ACUTE DISTRESS NOTED.BELONGING LIST HS SIGNED BY THE PT.NO PAIN NOTED.PT TRANSFERRED AMBULANCE.NO COMPLICATIONS NOTED. Addendum: 09/21/18 at 1752 by SOCORRO FERNANDEZ RN SKIN ASSESSMENT HAS DONE AND TOOK THE PICTURE.
== END 2018-09-21 17:54 | DRG 853 ==
LOC: ER 21:18 → TELE-TD 09-13 00:48 → TELE1 09-14 11:53 → MEDSG1 09-15 08:44
PROVIDERS: ADMIT Registered Nurse; ATTEND Nurse Practitioner Acute Care
PROC: 0JB90ZZ Excision of Buttock Subcutaneous Tissue and Fascia, Open Approach (ICD-10-PCS; principal; 2018-09-14)
DX: A41.9 Sepsis, unspecified organism (principal); L89.323 Pressure ulcer of left buttock, stage 3; L89.213 Pressure ulcer of right hip, stage 3; L89.313 Pressure ulcer of right buttock, stage 3; G92 Toxic encephalopathy; K72.00 Acute and subacute hepatic failure without coma; E87.1 Hypo-osmolality and hyponatremia; E44.0 Moderate protein-calorie malnutrition; N39.0 Urinary tract infection, site not specified; E87.2 Acidosis; D68.59 Other primary thrombophilia; E66.2 Morbid (severe) obesity with alveolar hypoventilation; Z68.43 Body mass index [BMI] 50.0-59.9, adult; I48.91 Unspecified atrial fibrillation; L30.4 Erythema intertrigo; J45.909 Unspecified asthma, uncomplicated; Z98.84 Bariatric surgery status; Z86.2 Personal history of diseases of the blood and blood-forming organs and certain disorders involving the immune mechanism; Z87.01 Personal history of pneumonia (recurrent); Z87.440 Personal history of urinary (tract) infections; R62.7 Adult failure to thrive; R65.20 Severe sepsis without septic shock; Z73.6 Limitation of activities due to disability; E88.09 Other disorders of plasma-protein metabolism, not elsewhere classified; L89.150 Pressure ulcer of sacral region, unstageable; L89.890 Pressure ulcer of other site, unstageable; M19.90 Unspecified osteoarthritis, unspecified site; G62.9 Polyneuropathy, unspecified; Z88.0 Allergy status to penicillin; L98.8 Other specified disorders of the skin and subcutaneous tissue; I25.2 Old myocardial infarction; L89.020 Pressure ulcer of left elbow, unstageable; Z96.641 Presence of right artificial hip joint
CPT/HCPCS: 31720; 36415; 36569; 70450-TC; 71045-TC; 80048-TC; 80053-TC; 80061-TC; 80074; 80076-TC; 80202-TC; 80305; 81000-TC; 82140-TC; 82550-TC; 83605-TC; 83735-TC; 84100-TC; 84443-TC; 84484-TC; 85025-TC; 85730-TC; 87040-TC; 87070-TC; 87081-TC; 87086-TC; 92526; 92611-TC; 93307-TC; 93930-TC; 93971-TC; 94760-TC; 97110-TC; 97112-TC; 97116-TC; 97530-TC; 97535-TC; A4216; A6248; A6253; A6403; G0378; G0480; J0282; J1956; J3370; J3490; J7030; J7050; J7060